=== PATIENT | male | born 1935 | race Caucasian/White ===

== ENCOUNTER 2016-05-16 15:12 | Observation (INO) | payer MEDICARE, OTHER ==
[~2016-05-16] VITALS: Ht 172.7 cm; Wt 95.5 kg
[2016-05-16 16:27] LABS: APPEARANCE CLEAR (CLEAR); COLOR TAN (YELLOW)
[2016-05-16 16:28] LABS: BILIRUBIN NEGATIVE (NEGATIVE); GLUCOSE NEGATIVE (NEGATIVE); KETONE NEGATIVE (NEGATIVE); LEUKOCYTE ESTERASE NEGATIVE (NEGATIVE); NITRITE NEGATIVE (NEGATIVE); PROTEIN NEGATIVE (NEGATIVE); UROBILINOGEN NORMAL (NORMAL)
[2016-05-16 16:34] LABS: APTT 20.3 SECONDS (22.8-39.4); INR 0.99 (0.85-1.17); PROTIME 12.9 SECONDS (11.6-15.0)
[2016-05-16 17:15] LABS: BASOPHILS 0.3 % (0.0-2.0); EOSINOPHILS 2.7 % (0-7); HEMATOCRIT 47.8 % (42.0-54.0); IMMATURE GRANULOCYTES 0.2 % (0-5); LYMPHOCYTES 39.7 % (15-50); MCH 34.2 pg (26.0-34.0); MCHC 33.5 g/dL (31.0-37.0); MCV 102.1 fL (80.0-100.0); MONOCYTES 9.3 % (2-11); NEUTROPHILS 47.8 % (40-80); PLATELET COUNT 145 10x3/uL (130-400); RBC 4.68 10x6/uL (4.20-6.10); RDW 13.8 % (11.5-14.5)
[2016-05-16 17:26] LABS: ALBUMIN 3.6 g/dL (3.4-5.0); ALKALINE PHOSPHATASE 92 U/L (46-116); ALT (SGPT) 43 U/L (10-68); BILIRUBIN - TOTAL 0.34 mg/dL (0.2-1.3); CALC OSMOLALITY 285 mosm/kg (275-300); CALCIUM 9.1 mg/dL (8.5-10.1); CARBON DIOXIDE 27.5 mmol/L (21.0-32.0); CHLORIDE - SERUM 108 mmol/L (98-107); GLUCOSE 93 mg/dL (74-106); POTASSIUM - SERUM 4.4 mmol/L (3.5-5.1); PROTEIN - SERUM 6.9 g/dL (6.4-8.2); SODIUM 144 mmol/L (136-145); UREA NITROGEN 10 mg/dL (7-18); eGFR NON AFRICAN AMERICAN 76 mL/min (90-120)
[2016-05-16 17:35] LABS: CREATINE KINASE 57 UL (21-232); MAGNESIUM - SERUM 1.9 mg/dL (1.8-2.4); PRO BNP 162 pg/mL (0-450)
[2016-05-16 17:38] LABS: TROPONIN-I < 0.017 ng/mL (0.000-0.060)
--- NOTE | 2016-05-16 19:00 | NUR ---
BEDSIDE REPORT RECEIVED AND CARE OF PT ASSUMED. PT LYING IN SEMI EARLY'S POSITION WITH EYES CLOSED. RIGHT CVL PATENT WITH D5 LR INFUSING AT 140 ML / HR. CORN SHELLER IN USE WITH MORPHINE SET AT 05/15/09 FOR PAIN MANAGEMENT. TELEMETRY IN USE AND READING 71 SR, SLIGHTLY IRREGULAR AT THIS ASSESSMENT. WOUND VAC ON RIGHT SIDE COMPRESSED WITHOUT LEAK ALARMS. SCD'S IN USE ON BLE. MARTIN CATHETER DRAINING TO GRAVITY WITH YELLOW URINE IN COLLECTION BAG. O2 IN USE AT 2L VIA NC AND SPO2 95% AT THIS TIME. WILL MONITOR SERGEYLEY FOR NEEDS.
--- NOTE | 2016-05-16 20:04 | NUR ---
PT ARRIVED ON UNIT VIA WHEELCHAIR ESCORTED BY ER NURSE AND SPOUSE. POSITIONED IN BED FOR COMFORT. IV IN LEFT WRIST SL. NEURO CHECKS PERFORMED WITH NO DEFICITS AT THIS ASSESSMENT.
[2016-05-16] MEDS ORDERED: NAMENDA10 MG PO (20:06)
[2016-05-16] MEDS ORDERED: MULTAQ400 MG PO (20:06)
[2016-05-16] MEDS ORDERED: ASPIRIN81 MG PO (20:07)
[2016-05-16 20:43] VITALS: BP 139/76; Ht 172.7 cm; Wt 95.5 kg
--- NOTE | 2016-05-16 20:45 | NUR ---
PROVIDED SNACK OF JUICE, PUDDING AND EVELIO CRACKERS.
--- NOTE | 2016-05-16 21:00 | NUR ---
ADMISSION ASSESSMENT AND HISTORY COMPLETE. ADVANCED DIRECTIVES AND POA SUPPLIED BY SPOUSE AND COPY PLACED IN CHART.
--- NOTE | 2016-05-16 21:47 | NUR ---
HS MEDICATIONS GIVEN...PO MEDS GIVEN WITH SIP OF WATER, AND TURNED OFF SUCTION TO NG TUBE FOR 30 MINUTES.
--- NOTE | 2016-05-16 22:00 | NUR ---
PT TURNED ONTO LEFT SIDE PROPPED WITH PILLOWS.
--- NOTE | 2016-05-16 22:21 | NUR ---
HS MEDICATIONS GIVEN. WILL CONTINUE TO MONITOR FOR NEEDS.
--- NOTE | 2016-05-16 23:47 | NUR ---
PT RESTING QUIETLY AT THIS TIME ON LEFT SIDE, WITH EYES CLOSED AND UNLABORED BREATHING. SCD'S IN USE ON BLE. WOUND VAC COMPRESSED WITH NO LEAK ALARMS.
[2016-05-17 04:24] VITALS: BP 110/66
--- NOTE | 2016-05-17 07:40 | NUR ---
PATIENT RECEIVED ALERT IN RIGHT LATERAL POSITION. RESPIRATIONS EVEN AND UNLABORED. AT BEDSIDE. SIDE RAILS UP X2. BED IN LOW POSITION. CALL LIGHT IN REACH.
[2016-05-17 08:22] VITALS: BP 130/66
--- NOTE | 2016-05-17 11:52 | NUR ---
Patient Name: EDDIE HERNANDEZ Admission Status: ER Accout number: [id number] Admission Date: 05-16-2016 : 1935 Admission Diagnosis: Attending: CHAI Current LOS: 1 Anticipated DC Date: 05-17-2016 Planned Disposition: Home with Home Health Primary Insurance: MEDICARE A & B Discharge Planning Comments: CM MET WITH PATIENT AND SPOUSE (JOE) REGARDING D/C NEEDS AND PLANS. PATIENTS STATED THEY LIVE IN A [place] L[place]EL [place]. PATIENT IS PARTIAL DEPENDENT AND USES A WALKER AT HOME. PATIENT ALSO HAS A CANE, BUILT IN SHOWER BENCH, PORTABLE O2, AND HOME O2 WHICH STATES HE DOES NOT USE REGULARLY. PATIENTS PCP IS DR. PARIKH AND PHARMACY IS [facility] ON [address]. PATIENTS CHOSE [facility] WITH THE COLLEEN FORM SIGNED AND REFERRAL WAS FAXED. CM WILL CONTINUE TO FOLLOW PATIENT WITH D/C NEEDS AND PLANS. PCP DR[facility] [address]- [phone] JOE () [phone] Pipe Fitter Ammonia: Wendi Luna Is the patient Alert and Oriented? No 0 * How many steps to enter\exit or inside your home? 0 0 * PCP DR. PARIKH 0 * Pharmacy [facility] [address] 0 * Preadmission Environment Home with Family 0 * ADLs Partial Dependent 0 * Partial ADLs (Assistance needed) Ambulation Bathing Dressing Medication Management Toileting Transfers 0 * Community resources currently utilized None 0 * Additional services required to return to the preadmission environment? Yes 0 * Can the patient safely return to the preadmission environment? Yes 0 * Has this patient been hospitalized within the prior 30 days at any hospital? No 0 Grand Total: 0
[2016-05-17 12:31] VITALS: BP 104/53
--- NOTE | 2016-05-17 12:57 | NUR ---
PATIENT SITTING UP ON SIDE OF BED EATING LUNCH. TOLERATING WELL. DENIES NEEDS. PRESENT.
--- NOTE | 2016-05-17 14:40 | NUR ---
IV D/C WITH CATH TIP INTACT. SITE COVERED WITH GAUZE AND BANDAID. D/C TEACHING PROVIDED TO PATIENT AND . STATES UNDERSTANDING.
--- NOTE | 2016-05-17 14:45 | NUR ---
PATIENT D/C HOME WITH . TRANSFERRED DOWNSTAIRS VIA WHEELCHAIR WITH STAFF.
== END 2016-05-17 14:46 | disposition home health service (06) ==
LOC: D.ER 15:12 → D.MS 19:18 → OBSVTIME 20:04 → D.MS 05-17 14:46
PROVIDERS: Emergency Medicine; Nurse Practitioner Family; ADMIT Legal Medicine
DX: G45.9 Transient cerebral ischemic attack, unspecified (principal); F03.90 Unspecified dementia, unspecified severity, without behavioral disturbance, psychotic disturbance, mood disturbance, and anxiety; G25.0 Essential tremor; I10 Essential (primary) hypertension; G47.00 Insomnia, unspecified; Z95.0 Presence of cardiac pacemaker; R29.810 Facial weakness; Z85.038 Personal history of other malignant neoplasm of large intestine

== ENCOUNTER 2016-06-09 16:46 | Inpatient (IN) | payer MEDICARE, OTHER ==
[~2016-06-09] VITALS: Ht 172.7 cm; Wt 137.0 kg
[~2016-06-09 16:46] MED LIST: ASPIRIN81 MG PO; MULTAQ400 MG PO; NAMENDA10 MG PO
[2016-06-09 17:59] LABS: BASOPHILS 0.2 % (0.0-2.0); EOSINOPHILS 0.2 % (0-7); HEMATOCRIT 47.3 % (42.0-54.0); HEMOGLOBIN 15.8 g/dL (13.5-17.5); IMMATURE GRANULOCYTES 0.3 % (0-5); LYMPHOCYTES 6.6 % (15-50); MCH 34.6 pg (26.0-34.0); MCHC 33.4 g/dL (31.0-37.0); MCV 103.7 fL (80.0-100.0); MEAN PLATELET VOLUME 9.7 fL (7.4-10.4); NEUTROPHILS 81.7 % (40-80); PLATELET COUNT 148 10x3/uL (130-400); RBC 4.56 10x6/uL (4.20-6.10); RDW 13.9 % (11.5-14.5); WBC 10.2 10x3/uL (4.8-10.8)
[2016-06-09 18:29] LABS: ALBUMIN 3.5 g/dL (3.4-5.0); ANION GAP 14.3 mmol/L (8-16); BILIRUBIN - TOTAL 0.7 mg/dL (0.2-1.3); CREATININE - SERUM 1.4 mg/dL (0.6-1.3); POTASSIUM - SERUM 4.3 mmol/L (3.5-5.1); PROTEIN - SERUM 7.1 g/dL (6.4-8.2)
[2016-06-09 18:45] LABS: APPEARANCE CLEAR (CLEAR); BILIRUBIN NEGATIVE (NEGATIVE); COLOR YELLOW (YELLOW); GLUCOSE NEGATIVE (NEGATIVE); KETONE NEGATIVE (NEGATIVE); LEUKOCYTE ESTERASE TRACE (NEGATIVE); NITRITE NEGATIVE (NEGATIVE); PROTEIN 1+ mg/dL (NEGATIVE); UROBILINOGEN NORMAL (NORMAL)
[2016-06-09 18:47] LABS: BACTERIA MODERATE /hpf (NONE SEEN); EPITHELIAL CELLS 0-5 /hpf (0-5); HYALINE CAST 0-5 /lpf (NONE SEEN); MUCUS <1+ /lpf (NONE SEEN); RED CELLS - URINE 0-5 /hpf (0-5); WHITE CELLS - URINE 0-5 /hpf (0-5)
[2016-06-09 21:58] VITALS: BP 103/54; BMI 46.0
--- NOTE | 2016-06-09 22:04 | NUR ---
PT ARRIVED FROM ER BY STRETCHER WITH SHAWNA OSBORNE AT SIDE NOT AT SIDE AND CALLED AND HEALTH HX AND MEDICATIONS REVIEWED AND CONFIRMED. PT APPERS TO BE CONFUSED AT TIMES AND POOR HISTORIAN, RESPERATIONS EVEN AND UNLABORED ON ROOM AIR PT WARM TO TOUCH AND TYLENOL ADMIN IN ER PER JAY RN IN ER NO DISTRESS WITH PT AT THIS TIME CALL LIGHT IN REACH SRX2 BED LOW AND LOCKED WILL MONITOR
[2016-06-10] VITALS (13 sets, daily range): BP systolic 100–141; BP diastolic 45–84
--- NOTE | 2016-06-10 07:24 | NUR ---
PATIENT RESTING IN BED WITH AT BEDSIDE. PATIENT IS AWAKE, ALERT, AND ORIENTED TO PERSON ONLY. PATIENT DID NOT KNOW THE MONTH AND YEAR. PATIENT ALSO STATED HE WAS AT [facility]". REORIENTED PATIENT TO TIME, PLACE, AND SITUATION. DENIES ANY PAIN AY PRESENT TIME. BED ALARM IN PLACE FOR FALL PRECAUTIONS. ASSESSMENT COMPLETED PER FLOWSHEET. IV PATENT WITHOUT ANY S/S OF INFECTION IN PATIENT'S LEFT HAND. NS INFUSING AT 50 ML/HR. CALL LIGHT IN PATIENT'S REACH. PATIENT DENIES NEEDS AT PRESENT TIME. WILL MONITOR PATIENT.
--- NOTE | 2016-06-10 23:54 | NUR ---
ASSISTED PATIENT TO STAND AND USE URINAL. NOW BACK IN BED. AWAKE AND ALERT BUT CONFUSED. RR EVEN AND UNLABORED. 0 S/S OF DISTRESS. DENIES PAIN AT THIS TIME. IV TO LEFT HAND PATENT WITH NO REDNESS OR SWELLING. B/A ON. SRX2. BED LOW. CALL LIGHT WITHIN REACH.
--- NOTE | 2016-06-11 00:04 | NUR ---
PATIENT WATCHING TV IN SEMI-FOWLERS POSITION. PATIENT DENIES NEEDS AT THIS TIME. PATIENT'S BED IN THE LOWEST POSITION AND CALL LIGHT WITHIN REACH.
[2016-06-11 04:00] VITALS: BP 132/89
--- NOTE | 2016-06-11 07:06 | NUR ---
RECIEVED PATIENT VIA WALKING ROUNDS. PATIENT AWAKE, ALERT AND CONFUSED. PATIETNT ARGUING WITH ABOUT WHEN HE IS LEAVING. CALMLY TRYING TO EXPLAIN TO PATIENT THAT HE IS NOT DISCHARGED. PAITENT SITTING UP IN THE CHAIR. APPLIED ALVAREZ MAT ALARM TO CHAIR, TURNED ON, CHECKED FUNCTIONING. ALVAREZ MAT ALARM FUNCTIONING PROPERLY. EXPLAINED TO PATIENT ABOUT THE ALARM. PATIENT AGITATED. PATIENT STATED "I AM NOT GOING TO GET UP I DO NOT NEED ALL OF THESE ALARMS" EXPLAINED TO PATIENT IT IS FOR SAFETY. PATIENT VERBALIZED UNDERSTANDING. POINTED OUT STICKY STUFF ON THE FLOOR. IT TRAILS ALL THE WAY UNDER THE BED. CLEANED IT UP OFF OF THE FLOOR OUTSIDE FROM UNDER THE BED. NOTIFIED EVS OF STICKY STUFF UNDER THE BED. CALL LIGHT IN REACH. DOOR OPEN. PATIENT DENIES NEEDS.
[2016-06-11 08:10] VITALS: BP 124/75
--- NOTE | 2016-06-11 10:19 | NUR ---
PATIENT OUT OF THE SHOWER. BACK IN BED. SCDS TO BILATERAL LEGS. BED IN LOWEST POSITION, CALL LIGHT IN REACH. NO SIGNS OF DISTRESS NOTED. PATIENT IS CONTENT. DENIES NEEDS. BED ALARM ON. DOOR OPEN.
[2016-06-11 11:02] VITALS: Ht 172.7 cm; Wt 137.0 kg
[2016-06-11 11:31] VITALS: BP 132/85
[2016-06-11 16:26] VITALS: BP 121/63
--- NOTE | 2016-06-11 19:00 | NUR ---
PATIENT IN BED WATCHING TV. AWAKE AND ALERT BUT DISORIENTED TO PLACE, TIME, AND SITUATION. DENIES PAIN AT THIS TIME. IV TO LEFT HAND PATENT WITH NO REDNESS OR SWELLING. SCD'S ON. ALVAREZ ALARM ON. SRX2. BED LOW. CALL LIGHT WITHIN REACH. DOOR OPEN.
[2016-06-11 21:00] VITALS: BP 164/93
[2016-06-12 01:00] VITALS: BP 160/90
[2016-06-12 05:00] VITALS: BP 131/78
[2016-06-12 08:00] LABS: BASOPHILS 0.5 % (0.0-2.0); EOSINOPHILS 2.1 % (0-7); HEMATOCRIT 40.9 % (42.0-54.0); IMMATURE GRANULOCYTES 0.2 % (0-5); LYMPHOCYTES 22.3 % (15-50); MCH 34.1 pg (26.0-34.0); MCHC 34.2 g/dL (31.0-37.0); MCV 99.8 fL (80.0-100.0); MEAN PLATELET VOLUME 9.7 fL (7.4-10.4); MONOCYTES 10.7 % (2-11); NEUTROPHILS 64.2 % (40-80); PLATELET COUNT 142 10x3/uL (130-400); RDW 13.5 % (11.5-14.5); WBC 6.6 10x3/uL (4.8-10.8)
[2016-06-12 08:18] VITALS: BP 146/86
[2016-06-12 08:18] LABS: ALBUMIN 2.9 g/dL (3.4-5.0); BILIRUBIN - TOTAL 0.6 mg/dL (0.2-1.3); CALCIUM 8.6 mg/dL (8.5-10.1); CARBON DIOXIDE 24.5 mmol/L (21.0-32.0); CREATININE - SERUM 1.1 mg/dL (0.6-1.3); POTASSIUM - SERUM 3.5 mmol/L (3.5-5.1); PROTEIN - SERUM 6.9 g/dL (6.4-8.2)
--- NOTE | 2016-06-12 08:30 | NUR ---
Patient Name: EDDIE HERNANDEZ Admission Status: ER Accout number: [id number] Admission Date: 06-09-2016 : 1935 Admission Diagnosis: Attending: CHAI Current LOS: 3 Anticipated DC Date: 06-14-2016 Planned Disposition: Home with Home Health Primary Insurance: MEDICARE A & B Discharge Planning Comments: CM MET WITH PATIENT AND (JOE) REGARDING D/C NEEDS AND PLANS. STATED SHE WILL DRIVE PATIENT HOME AT DISCHARGE. THERE ARE 4 STEPS WITH RAILS TO ENTER HOME AND NO STAIRS INSIDE. PATIENT IS INDEPENDENT WITH HIS CARE AND HAS A WALKER, CANE, OXYGEN, AND PORTABLE AT HOME IF NEEDED. PATIENTS PCP IS DR. PARIKH AND PHARMACY IS NOW [facility]. PATIENT IS CURRENT WITH [facility]. CM WILL CONTINUE TO FOLLOW PATIENT WITH D/C NEEDS AND PLANS. PCP DR[facility] JOE () [phone] Linen Room Custodian: Wendi Luna Is the patient Alert and Oriented? Yes 0 * How many steps to enter\exit or inside your home? 4/RAILS 0 * PCP DR. PARIKH 0 * [facility]acy [facility] * Preadmission Environment Home with Family 0 * ADLs Independent 0 * Equipment Cane Oxygen Rolling Walker 0 * List name and contact numbers for known caregivers / representatives who currently or will assist patient after discharge: JOE () [phone] 0 * Community resources currently utilized Home Health 0 * Please name any agencies selected above. [facility] 0 * Additional services required to return to the preadmission environment? Yes 0 * Can the patient safely return to the preadmission environment? Yes 0 * Has this patient been hospitalized within the prior 30 days at any hospital? No 0 Grand Total: 0
--- NOTE | 2016-06-12 09:23 | NUR ---
PATIENT SITTING UP IN THE CHAIR. NO SIGNS OF DISTRESS NOTED.
--- NOTE | 2016-06-12 11:01 | NUR ---
CM REASSESSMENT NOTE: PATIENT WILL DISCHARGE TODAY - (JOE) WILL DRIVE PATIENT HOME. PATIENT IS CURRENT WITH [facility] AND THEY WERE NOTIFIED OF HIS DISCHARGE TODAY. DC [facility] NOTICE SERVED TODAY.
--- NOTE | 2016-06-12 11:40 | NUR ---
DISCHARGE INSTRUCTIONS COMPLETED WITH PATIENT AND . BOTH VERBALIZED UNDERSTANDING AND DENY QUESTIONS. IV IS OUT OF HAND WITH CATH INTACT. PATIENT LEFT VIA WHEELCHAIR WITH VOLUNTEER STAFF AND .
== END 2016-06-12 12:08 | disposition home health service (06) | DRG 864 ==
LOC: D.ER 16:46 → D.MS 20:20
PROVIDERS: Physician Assistant Medical; ADMIT Legal Medicine
DX: R50.9 Fever, unspecified (principal); N28.9 Disorder of kidney and ureter, unspecified; Z95.0 Presence of cardiac pacemaker; W19.XXXA Unspecified fall, initial encounter; R25.1 Tremor, unspecified; Z95.1 Presence of aortocoronary bypass graft; Z95.5 Presence of coronary angioplasty implant and graft

== ENCOUNTER → 2016-09-06 09:28 | Outpatient (CLI) | payer MEDICARE, OTHER ==
[2016-06-11 11:02] VITALS: BMI 45.9
== END | disposition home or self-care (01) ==
LOC: D.CT 09:28
DX: I65.29 Occlusion and stenosis of unspecified carotid artery (principal)

== ENCOUNTER 2017-06-25 09:49 | Day surgery (SDC) | payer MEDICARE, OTHER ==
[~2017-06-25] VITALS: Ht 172.7 cm; Wt 86.2 kg
--- NOTE | ~2017-06-25 | OP ---
PATIENT NAME: EDDIE HERNANDEZ JR MEDICAL RECORD: [id number] :[birth year] LOCATION:D.OPS ADMISSION DATE: SURGEON: EVERARDO PERAZA MD DATE OF OPERATION: 06/25/2017 SURGEON: Everardo Peraza MD ANESTHESIA: General, Dr. Jean-Baptiste. OPERATION PERFORMED: 1. AICD pulse generator exchange. 2. Pulse generator pocket revision. PREOPERATIVE DIAGNOSIS: Pulse generator end of life. POSTOPERATIVE DIAGNOSES: Pulse generator end of life with contracted pulse generator pocket. INDICATION FOR OPERATION: Pulse generator end of life. FINDINGS OF THE OPERATION: The explanted pulse generator, Medtronic model #[id number], serial #[id number]. Newly implanted pulse generator, Medtronic model #IMTW8V1, serial #[id number]. The leads were good chronic leads. DESCRIPTION OF PROCEDURE: After informed consent, adequate preoperative medication evaluation, the patient was brought to the operating room, placed on the table in the supine position. After induction of general endotracheal anesthesia and application of appropriate monitoring devices, the left subclavian area was prepped and draped in a sterile field, utilizing Betadine scrub, alcohol, and Betadine solution. A Betadine-impregnated drape was also used. The left pulse generator pocket and incision were anesthetized with 1% lidocaine. An incision was made and dissection carried down to the pocket. The device was removed. The pocket was examined and had contraction with torsion of the device, therefore the pulse generator pocket was incised and developed more medially and inferiorly. Hemostasis was assured. The new device was connected to the leads and the device found to sense pace appropriately. The pocket was irrigated. Instrument count and sponge count were correct times 2. Pocket was closed in layers utilizing 3-0 Vicryl on the deep subcutaneous tissue and anterior pocket, 3-0 Vicryl on the subcutaneous tissue, and skin approximated with 5-0 subcuticular Monocryl. Sterile dressing was applied. The patient tolerated the procedure well and was transferred to postanesthesia recovery in satisfactory condition. TRANSINT:[id number] Voice Confirmation ID: [id number] DOCUMENT ID: [id number] OPERATIVE REPORT [id number] EDDIE HERNANDEZ EVERARDO KOENIG JR, MD at 1409 CC: [id number] DICTATION DATE: 06/25/17 1255 AUTOMOTIVE WORKER: 06/25/17 1322 [facility] 06/25/17 [place] [id number] [facility] [place], [facility]901
--- NOTE | ~2017-06-25 | HP ---
PATIENT: EDDIE HERNANDEZ JR MEDICAL RECORD: [id number] ACCOUNT: [id number] LOCATION:D.OPS : [birth year] ADMISSION DATE: 06/25/17 HISTORY AND PHYSICAL EXAMINATION NameSEDDIE MICHAEL (81yo, M) ID# [id number]. Date/Time06/12/2017 01:75YHYCX65 1935[facility] ClinicProviderEDROBYN PERAZA MDInsuranceMed Primary: [place] ([place]ARE) Insurance # : [id number] PCP : ZOË PARIKH Referring Provider Name : ZOË PARIKH Employer Name : [employer] Secondary: [employer] BENEFIT PLANS (MEDICARE SUPPLEMENT) Insurance # : [id number] Referring Provider Name : ZOË PARIKH Employer Name : [employer] Prescription: ESI1 - Member is eligible. Chief Complaint pulse generator end-of-life s/p CABG x 4 11/14/98 s/p gen exchange 08/07/2007 following carotid stenosis eval now for gen change Patient's Care Team Primary Care Provider (): ZOË PARIKH: [address] [place] [address] [place] [phone], , Referring Provider (): ZOË PARIKH: [address] [facility] [address] [facility], [place] [address], , Patient's Pharmacies [facility] [id number] (ERX): [address] [place] [address], , Vitals BP:120/86 sitting R arm 06/12/2017 01:34 pmBP Cuff Size:adult 06/12/2017 01:34 pmHR:72,reg 06/12/2017 01:34 pmHt:5 ft 7 in 06/12/2017 01:29 pmNotes:needs battery in ppm 06/12/2017 01:34 pmAllergies Reviewed Allergies MORPHINE: Itching (Mild to moderate)Medications Reviewed Medications azithromycin 500 mg rpzsac24/06/17 filledMEDCObenzonatate 100 mg iheynwh24/06/18 filledMEDCObenzonatate 200 mg cexickc70/28/18 hffmvxICQGUvqicebqrw31/08/17 enteredCindy BrownFluzone High-Dose [id number] (PF) 180 mcg/0.5 mL intramuscular syringe ADM 0.5ML IM UTD1 filledsurescriptslidocaine-prilocaine 2.5 %-2.5 % topical cream12/31/16 filledMEDCOmemantine 10 mg /22/18 filledMEDCOMultaq 400 mg edvlft55/22/18 filledMEDCOoseltamivir 75 mg rtncowm50/28/18 filledMEDCOProblems Reviewed Problems Pacemaker battery depletion - Onset: 06/12/2017 Cardiac pacemaker in situ - Onset: 06/12/2017 Carotid artery stenosis - Onset: 09/10/2016 Secondary polycythemia Family History Discussed Family History Non-contributory.Father- Heart diseaseMother- Natural deathSocial History HISTORY AND PHYSICAL [id number] EDDIE HERNANDEZ JR Discussed Social History Cardiology and General Family history of heart disease?: Y Smoking Status: Never smoker High Cholesterol: Y High blood pressure: Y Diabetes: N Alcohol intake: None Occupation: Retired Marital status: Is blood transfusion acceptable in an emergency?: Y Caffeine intake: None Surgical History Reviewed Surgical History Other - 2010 - Hip fracture Other - 2009 - Cardiac arrest Other - 2009 - Defibrillator Other - 2008 - TIA Other - 2007 - 2 stents Other - 1998 - CABG Past Medical History Discussed Past Medical History Cancer: Y - Colon Carotid Stenosis: Y Coronary Artery Disease: Y Heart Disease: Y High Blood Pressure: Y Documents for Discussion N/A Screening None recorded. HPI Dysrhythmia Reported by patient. Frequency: none Limitations: none Alleviating Factors: controlled on current medication Notes: AICD placed in 2009, now needs new battery AICD end-of-life ROS Patient reports muscle aches, muscle weakness, and arthralgias/joint pain but reports no back pain and no swelling in the extremities. He reports no loss of consciousness, no weakness, no numbness, no seizures, no dizziness, and no headaches; dementia. He reports no fever, no night sweats, no significant weight gain, no significant weight loss, and no exercise intolerance. He reports no dry eyes, no irritation, and no vision change. He reports no difficulty hearing and no ear pain. He reports no frequent n o sebleeds and no nose/sinus problems. He reports no sore throat, no bleeding gums, no snoring, no dry mouth, no mouth ulcers, no oral abnormalities, and no teeth problems. He reports no chest pain, no arm pain on exertion, no shortness of breath when walki n g, no shortness of breath when lying down, no palpitations, and no known heart murmur. He reports no cough, no wheezing, no shortness of breath, and no coughing up blood. He reports no abdominal pain, no vomiting, normal appetite, no diarrhea, not vomitin g blood, no nausea, and no constipation. He reports no incontinence, no difficulty urinating, no hematuria, and HISTORY AND PHYSICAL [id number] DAVID,EDDIE A JR no increased frequency. He reports no abnormal mole, no jaundice, and no rashes. He reports no depression, no sleep disturbances, feeling safe i n relationship, and no alcohol abuse. He reports no fatigue. He reports no swollen glands and no bruising. He reports no runny nose, no sinus pressure, no itching, no hives, and no frequent sneezing. ROS as noted in the HPI Physical Exam Patient is an 81-year-old male. Constitutional: General Appearance well nourished and developed and healthy-appearing. Level of Distress NAD. Ambulation ambulation with walker. Cardiovascular: Apical Impulse not displaced or no thrill. Heart Auscultation normal s1 and s2; no murmurs, rubs, or gallops; and RRR. Arterial Pulses no abdominal aorta bruits, femoral bruits, or popliteal bruits and 2+ bilateral, carotid 2+ bilateral, femoral 2+ bilateral, popliteal 2+ bilateral, and dorsalis p jerson 2+ bilateral. Edema no edema or varicosities. Lungs: Repiratory Effort no dyspnea. Percussion no hyperresonance or dullness or flatness. Auscultation no wheezing, rhonchi, or rales / crackles and breathing sounds normal, good air movement, and CTA except as noted. Abdomen: Bowl Sounds normal. Inspection and Palpation no tenderness, guarding, masses, or rebound tenderness and soft and non-distended. Liver non-tender and no hepatomegaly. Spleen non-tender and no splenomegaly. Hernia none palpable. Musculoskeletal System: Gait And Stance wide-based and irregular gait and stance. Digits and Nails normal nails and no cyanosis. Neurologic: Cranial Nerves grossly intact. Reflexes DTRs 2+ bilaterally throughout. Sensation grossly intact. Lymph Nodes: Lymph Nodes no cervical LAD, supraclavicular LAD, axillary LAD, or inguinal LAD. Eyes: Lids and Conjunctivae no discharge or pallor and non-injected. Pupils PERRLA. Cornea grossly intact. EOM EOMI. Lens clear. Sclerae non-icteric. Neck: Neck no masses or enlarged lymph nodes and supple, trachea midline, and carotid bruits (bilateral). Thyroid no enlargement or nodules and non-tender. Skin: Inspection and Palpation no rash, lesions, ulcers, jaundice, or abnormal nevi. Assessment / Plan automatic implantable cardio defibrillator end-of-life 1. Pacemaker battery depletion T82.111A: Breakdown (mechanical) of cardiac pulse generator (battery), initial encounter 2. Cardiac pacemaker in situ Z95.0: Presence of cardiac pacemaker Discussion Notes I have discussed patient's disease process with them and his caregiver in detail as well as the alternative methods of treatment. We discussed AICD generator exchange HISTORY AND PHYSICAL [id number] EDDIE HERNANDEZ JR including the expected benefits and risks which include bleeding, infection, stroke, and , and the imponderables. They understand all of the above and he wishes to proceed with planned procedure Call and schedule AICD GENERATOR EXCHANGE EVERARDO PERAZA MD at 1409 CC: [id number] DICTATION DATE: 06/12/17 1330 FIELD RETURN REPAIRER: DM 06/24/17 0959 [facility] 06/25/17 [facility] [address] [place] [address]
[2017-06-25 10:22] VITALS: BP 129/79; Ht 172.7 cm; Wt 86.2 kg
[2017-06-25 10:39] LABS: HEMATOCRIT 46.7 % (42.0-54.0); HEMOGLOBIN 16.2 g/dL (13.5-17.5); MCH 33.4 pg (26.0-34.0); MCHC 34.7 g/dL (31.0-37.0); MCV 96.3 fL (80.0-100.0); MEAN PLATELET VOLUME 10.6 fL (7.4-10.4); RBC 4.85 10x6/uL (4.20-6.10); RDW 14.6 % (11.5-14.5); WBC 5.5 10x3/uL (4.8-10.8)
[2017-06-25 10:48] LABS: ANION GAP 13.6 mmol/L (8-16); CALCIUM 8.8 mg/dL (8.5-10.1); CARBON DIOXIDE 26.1 mmol/L (21.0-32.0); CREATININE - SERUM 1.4 mg/dL (0.6-1.3); POTASSIUM - SERUM 3.7 mmol/L (3.5-5.1)
[2017-06-25 10:49] LABS: APTT 23.8 SECONDS (22.8-39.4); INR 1.08 (0.85-1.17); PROTIME 13.6 SECONDS (11.6-15.0)
== END 2017-06-25 15:30 | disposition home or self-care (01) ==
LOC: D.OPS 09:49
PROVIDERS: Internal Medicine Cardiovascular Disease
DX: Z45.02 Encounter for adjustment and management of automatic implantable cardiac defibrillator (principal); I42.9 Cardiomyopathy, unspecified; Z01.812 Encounter for preprocedural laboratory examination

== ENCOUNTER 2019-02-15 13:09 | Emergency (ER) | payer MEDICARE, OTHER ==
[~2019-02-15] VITALS: Ht 172.7 cm; Wt 63.6 kg
[2019-02-15 13:13] VITALS: Ht 172.7 cm; Wt 63.6 kg
[2019-02-15 13:44] LABS: BASOPHILS 0.2 % (0-2); EOSINOPHILS 1.3 % (0-7); HEMATOCRIT 44.1 % (42.0-54.0); HEMOGLOBIN 14.5 g/dL (13.5-17.5); IMMATURE GRANULOCYTES 0.1 % (0-5); MCHC 32.9 g/dL (31.0-37.0); MCV 103.5 fL (80.0-100.0); MEAN PLATELET VOLUME 9.8 fL (7.4-10.4); MONOCYTES 6.4 % (2-11); RBC 4.26 10x6/uL (4.20-6.10)
[2019-02-15 13:49] LABS: PLATELET COUNT 163 10x3/uL (130-400)
[2019-02-15 14:06] LABS: ALBUMIN 2.8 g/dL (3.4-5.0); ANION GAP 12.3 mmol/L (8-16); BILIRUBIN - TOTAL 0.44 mg/dL (0.2-1.3); CALCIUM 9.3 mg/dL (8.5-10.1); CARBON DIOXIDE 29.6 mmol/L (21.0-32.0); CREATININE - SERUM 1.2 mg/dL (0.6-1.3); POTASSIUM - SERUM 3.9 mmol/L (3.5-5.1); PROTEIN - SERUM 6.8 g/dL (6.4-8.2)
[2019-02-15] MEDS ORDERED: ZPAK PO (16:54)
[2019-02-15 17:50] VITALS: BP 110/64
== END 2019-02-15 17:57 | disposition home or self-care (01) ==
LOC: D.ER 13:09
PROVIDERS: Emergency Medicine
DX: J06.9 Acute upper respiratory infection, unspecified (principal); E86.0 Dehydration; Z86.73 Personal history of transient ischemic attack (TIA), and cerebral infarction without residual deficits; Z95.0 Presence of cardiac pacemaker; F03.90 Unspecified dementia, unspecified severity, without behavioral disturbance, psychotic disturbance, mood disturbance, and anxiety

== ENCOUNTER 2019-04-21 22:13 | Inpatient (IN) | payer MEDICARE, OTHER ==
[~2019-04-21] VITALS: Ht 172.7 cm; Wt 71.1 kg
[~2019-04-21 22:13] MED LIST changes: +ZPAK PO
[2019-04-21 22:58] LABS: APTT 28.2 SECONDS (22.8-39.4); BASOPHILS 0.3 % (0-2); EOSINOPHILS 0 % (0-7); HEMATOCRIT 43.4 % (42.0-54.0); HEMOGLOBIN 14.5 g/dL (13.5-17.5); IMMATURE GRANULOCYTES 0.3 % (0-5); INR 1.11 (0.85-1.17); MCHC 33.4 g/dL (31.0-37.0); MCV 101.9 fL (80.0-100.0); MEAN PLATELET VOLUME 10.5 fL (7.4-10.4); MONOCYTES 1.3 % (2-11); NEUTROPHILS 89.1 % (40-80); PLATELET COUNT 89 10x3/uL (130-400); PROTIME 13.7 SECONDS (11.6-15.0); RBC 4.26 10x6/uL (4.20-6.10); RDW 14.9 % (11.5-14.5); WBC 3.8 10x3/uL (4.8-10.8)
[2019-04-21 23:00] VITALS: BP 92/47
[2019-04-21 23:02] LABS: PLATELET ESTIMATE DECREASED
[2019-04-21 23:05] LABS: CALC OSMOLALITY 284 mosm/kg (275-300); CALCIUM 8.2 mg/dL (8.5-10.1); CARBON DIOXIDE 27.1 mmol/L (21.0-32.0); CHLORIDE - SERUM 105 mmol/L (98-107); CREATININE - SERUM 1.6 mg/dL (0.6-1.3); GLUCOSE 74 mg/dL (74-106); POTASSIUM - SERUM 4.1 mmol/L (3.5-5.1); SODIUM 140 mmol/L (136-145); UREA NITROGEN 31 mg/dL (7-18); eGFR NON AFRICAN AMERICAN 44 mL/min (90-120)
[2019-04-21 23:25] LABS: ALBUMIN 2.7 g/dL (3.4-5.0); ALKALINE PHOSPHATASE 90 U/L (46-116); ALT (SGPT) 35 U/L (10-68); BILIRUBIN - TOTAL 0.49 mg/dL (0.2-1.3); CKMB 1.1 U/L (0.0-3.6); CREATINE KINASE 599 UL (21-232); PROTEIN - SERUM 6.8 g/dL (6.4-8.2)
[2019-04-21 23:26] LABS: TROPONIN-I < 0.017 ng/mL (0.000-0.060)
[2019-04-21 23:27] LABS: APPEARANCE CLOUDY (CLEAR); BILIRUBIN NEGATIVE (NEGATIVE); COLOR YELLOW (YELLOW); GLUCOSE 100 mg/dL (NEGATIVE); KETONE NEGATIVE (NEGATIVE); NITRITE NEGATIVE (NEGATIVE); PROTEIN 1+ mg/dL (NEGATIVE); UROBILINOGEN NORMAL (NORMAL)
[2019-04-21 23:28] LABS: BACTERIA MODERATE /hpf (NEGATIVE); EPITHELIAL CELLS 0-5 /hpf (0-5); RED CELLS - URINE 0-5 /hpf (0-5); WHITE CELLS - URINE 0-5 /hpf (NEGATIVE)
[2019-04-21 23:30] VITALS: BP 74/23
[2019-04-21 23:35] VITALS: BP 58/34
[2019-04-21 23:50] VITALS: BP 74/27
[2019-04-22] VITALS (61 sets, daily range): BP systolic 69–150; BP diastolic 24–81; Ht 172.7 cm; Wt 71.1 kg
--- NOTE | 2019-04-22 01:18 | NUR ---
PT RECIEVED FROM ED VIA STRETCHER ACCOMPANIED BY RN. AWAKE, LETHARGIC. TRANSFERED TO ICU BED RM 2306. MONITOR EQUIP ESTABLISHED. BP 122/63 WITH LEVOPHED @ 12 MCG/MIN. MARTIN CATH INSERTED PER STERILE TECHNIQUE. TOLERATED WELL. PIV X 3 PATENT. SR PER CM. PPM NOTED BUT NO PACED BEATS AT THIS TIME. WILL CONTINUE TO MONITOR.
[2019-04-22 03:03] LABS: BASOPHILS 0.1 % (0-2); EOSINOPHILS 0 % (0-7); HEMOGLOBIN 13.4 g/dL (13.5-17.5); IMMATURE GRANULOCYTES 0.2 % (0-5); LYMPHOCYTES 8.1 % (15-50); MCH 33.8 pg (26.0-34.0); MCHC 33.5 g/dL (31.0-37.0); MCV 100.8 fL (80.0-100.0); MEAN PLATELET VOLUME 10.1 fL (7.4-10.4); MONOCYTES 6.3 % (2-11); NEUTROPHILS 85.3 % (40-80); PLATELET COUNT 74 10x3/uL (130-400); RBC 3.97 10x6/uL (4.20-6.10); RDW 14.7 % (11.5-14.5); WBC 9.4 10x3/uL (4.8-10.8)
[2019-04-22 03:18] LABS: ALBUMIN 2.2 g/dL (3.4-5.0); ANION GAP 13.7 mmol/L (8-16); BILIRUBIN - TOTAL 0.56 mg/dL (0.2-1.3); CALCIUM 7.8 mg/dL (8.5-10.1); CARBON DIOXIDE 23.6 mmol/L (21.0-32.0); CREATININE - SERUM 1.7 mg/dL (0.6-1.3); PROTEIN - SERUM 5.7 g/dL (6.4-8.2)
[2019-04-22 03:19] LABS: POTASSIUM - SERUM 3.3 mmol/L (3.5-5.1)
--- NOTE | 2019-04-22 07:15 | NUR ---
REPORT RECEIVED. ASSESSMENT COMPLETE PER FLOW SHEET. VSS. NO NEW CAHNGES PT RESTING COMFORTABLY WILL CONTINUE TO MONITOR
[2019-04-22] MEDS ORDERED: CYMBALTA20 MG PO (09:06)
--- NOTE | 2019-04-22 09:15 | NUR ---
FAMILY AT BEDSIDE GIVEN UDPATE.
--- NOTE | 2019-04-22 11:15 | NUR ---
REASSESSMENT COMPLETE PER FLOW SHEET. VSS. NO NEW CHANGES PT RESTING COMFORTABLY WILL CNTINUE TO MONITOR
--- NOTE | 2019-04-22 13:15 | NUR ---
ASSISTED OOB TO CHAIR WITHOUT DIFFICULTY. VSS WILL CONTINUE TO MONITOR
--- NOTE | 2019-04-22 15:15 | NUR ---
REPORT RECEIVED. ASSESSMENT COMPLETE PER FLOW SHEET. VSS. NO NEW CHANGES PT ERSTING COMFORTABLY WILL CONTINUE TO MONITOR
--- NOTE | 2019-04-22 15:23 | MORECARE ---
CASE MANAGEMENT DISCHARGE SUMMARY PATIENT: EDDIE HERNANDEZ JR UNIT: [id number] ADM DATE: 04/21/19 AGE: 83 : 36 SEX: M ROOM/BED: D.2306 AUTHOR: MAURO ANAND PHYSICIAN: REFERRING PHYSICIAN: ZOË PARIKH MD DATE OF SERVICE: 04/22/19 Discharge Plan Patient Name: EDDIE HERNANDEZ Facility: [facility]:[place] : 1935 Planned Disposition: Anticipated Discharge Date: Discharge Date: Expected LOS: Initial Reviewer: [email or web address] Initial Review Date: 04/22/2019 Generated: 04/22/19 4:23 pm Patient Name: EDDIE HERNANDEZ Page [id number] at 1523 All edits/amendments must be made on the electronic document DICTATION DATE: 04/22/19 152 KIDS ACTIVITIES COACH: GUERITA 04/22/191522 RPT#: [id number] DC DATE: STATUS: ADM IN [facility] [address] [place] [address] END OF REPORT
--- NOTE | 2019-04-22 15:43 | MORECARE ---
CASE MANAGEMENT DISCHARGE SUMMARY PATIENT: EDDIE HERNANDEZ JR UNIT: [id number] ADM DATE: 04/21/19 AGE: 83 : 36 SEX: M ROOM/BED: D.2306 AUTHOR: CHENG,DOC PHYSICIAN: REFERRING PHYSICIAN: ZOË PARIKH MD DATE OF SERVICE: 04/22/19 Discharge Plan Patient Name: EDDIE HERNANDEZ Facility: [facility]:[place] : 1935 Planned Disposition: Anticipated Discharge Date: Discharge Date: Expected LOS: Initial Reviewer: [email or web address] Initial Review Date: 04/22/2019 Generated: 04/22/19 4:43 pm Comments DCP- Discharge Planning Updated by [email or web address]: Madyson Grimaldo on 04/22/19 2:[address] Patient Name: EDDIE HERNANDEZ Admission Status: ER Accout number: [id number] Admission Date: 04-21-2019 : 1935 Admission Diagnosis: Attending: ZOË PARIKH Current LOS: 1 Anticipated DC Date: Planned Disposition: Primary Insurance: MEDICARE A & B Discharge Planning Comments: CM met with patient at bedside after explaining CM role and obtaining verbal consent. Patient is confused and unable to answer questions appropriately. CM called and spoke with patient's Joe ([phone]) Patient lives at a custodial home where he get 24 hr care. (lived there for past 2 yrs.) and plans to return there upon discharge. Patient feels this would be a safe discharge. CM discussed availability / needs of home health and medical equipment. Patient denies any discharge needs at this time. Patient states he will have his family drive him home upon discharge. CM will continue to follow and assist as needed with discharge planning / needs. Geography Instructor: Madyson Grimaldo DCPIA - Discharge Planning Initial Assessment Updated by [email or web address]: Madyson Grimaldo on 04/22/19 3:32 pm * Is the patient Alert and Oriented? No * How many steps to enter\exit or inside your home? * PCP KATI * [facility]acy [facility] * Preadmission Environment Skilled Nursing * Facility Name [facility] * ADLs Partial Dependent * Partial ADLs (Assistance needed) Ambulation Bathing Dressing Eating Medication Management Toileting Transfers * Equipment Walker * List name and contact numbers for known caregivers / representatives who currently or will assist patient after discharge: JOE HERNANDEZ - SPOUSE - [phone] EDDIE HERNANDEZ III - SON- [phone] * Verbal permission to speak to the caregivers and representatives has been obtained from the patient. Yes * Community resources currently utilized None * Additional services required to return to the preadmission environment? No * Can the patient safely return to the preadmission environment? Yes * Has this patient been hospitalized within the prior 30 days at any hospital? No Last DP export: 04/22/19 2:23 Patient Name: EDDIE HERNANDEZ Page 27611 at 1543 All edits/amendments must be made on the electronic document DICTATION DATE: 04/22/191542 BOAT AND PLANT UTILITY SUPERVISOR: GUERITA 04/22/191542 RPT#: [id number] DC DATE: STATUS: ADM IN [facility] [address] [place] [address] END OF REPORT
--- NOTE | 2019-04-22 17:15 | NUR ---
PT GIVEN DINNER TRAY ATE 100% NO NEW CHANGE WILL CONTINUE TO MONITOR
--- NOTE | 2019-04-22 19:30 | NUR ---
REPORT RECIEVED, SHIFT ASSESSMENT COMPLETE, PT IS CONFUSED LYING IN BED, ALL PPP, VSS, CALL LIGHT IN REACH
--- NOTE | 2019-04-22 21:00 | NUR ---
NO VISITORS AT THIS TIME, WILL CON'T TO MONITOR
--- NOTE | 2019-04-22 23:00 | NUR ---
REASSESSMENT COMPLETE, NO CHANGES NOTED,
[2019-04-23] VITALS (15 sets, daily range): BP systolic 90–130; BP diastolic 40–76
--- NOTE | 2019-04-23 01:15 | NUR ---
CHG BATH GIVEN, PT UPTO CHAIR AT THIS TIME, WILL CON'T TO MONITOR
--- NOTE | 2019-04-23 03:30 | NUR ---
PT BACK TO BED AT THIS TIME, TOLERATED WELL
--- NOTE | 2019-04-23 05:18 | NUR ---
PT RESTING COMFORTABLY AT THIS TIME, VSS, CALL LIGHT IN REACH
[2019-04-23 05:21] LABS: BASOPHILS 0.1 % (0-2); EOSINOPHILS 0.5 % (0-7); HEMATOCRIT 39.5 % (42.0-54.0); HEMOGLOBIN 13.1 g/dL (13.5-17.5); IMMATURE GRANULOCYTES 0.3 % (0-5); LYMPHOCYTES 14.4 % (15-50); MCH 33.7 pg (26.0-34.0); MCHC 33.2 g/dL (31.0-37.0); MCV 101.5 fL (80.0-100.0); MEAN PLATELET VOLUME 11.9 fL (7.4-10.4); NEUTROPHILS 76.7 % (40-80); PLATELET COUNT 84 10x3/uL (130-400); RBC 3.89 10x6/uL (4.20-6.10); RDW 14.9 % (11.5-14.5); WBC 9.2 10x3/uL (4.8-10.8)
[2019-04-23 05:47] LABS: ANION GAP 9.5 mmol/L (8-16); CARBON DIOXIDE 28.1 mmol/L (21.0-32.0); POTASSIUM - SERUM 3.6 mmol/L (3.5-5.1); VANCOMYCIN - RANDOM 13.4 ug/mL (10.0-20.0)
[2019-04-23 05:48] LABS: CREATININE - SERUM 1.1 mg/dL (0.6-1.3)
--- NOTE | 2019-04-23 07:15 | NUR ---
REPORT RECEIVED. ASSESSMENT COMPLETE PER FLOW SHEET. VSS. NO NEW CHANGES PT RESTING COMFORTABLY WILL CONTINUE FLAQUITA ONITOR
[2019-04-23 09:08] LABS: PLATELET ESTIMATE DECREASED
--- NOTE | 2019-04-23 12:32 | NUR ---
RECEIVED TO ROOM 2217 VIA WC FROM ICU. A/O X3. SKIN WNL. UP IN CHAIR AT BEDSIDE EATING LUNCH.
--- NOTE | 2019-04-23 18:20 | NUR ---
CONTINUES UP IN CHIAR AT BEDSIDE EATING SUPPER. WAS HERE TO VISIT. DENIES NEEDS. NO CHANGES NOTED.
--- NOTE | 2019-04-23 19:53 | NUR ---
UP IN RECLINER. PLEASANTLY CONFUSED. ORIENTED TO PERSON ONLY. SAYS HE WANTS TO GO TO [place] AND GET SOME MORE COUPLINGS TO FINISH THE JOB. AGREED TO JUST STAY HERE INSTEAD SINCE [place] WAS CLOSING SOON. WILL NOTE ANY CHANGE.
--- NOTE | 2019-04-23 23:31 | NUR ---
STILL UP IN RECLINER, NOT COMPLIANT WITH GOING TO BED AT THIS TIME. SAYS HE IS WAITING ON A FRIEND TO COME, THIS NURSE ATTEMPTED TO REORIENTATE ON PLACE AND TIME, HE SAID HE WAS FINE WAITING. CHAIR ALARM IS STILL ENGAGED. WILL NOTE ANY CHANGE.
[2019-04-24] VITALS: BP 132/67
--- NOTE | 2019-04-24 02:34 | NUR ---
I have reviewed this patient and I concur with the Shift Assessment completed by the Licensed Practical Nurse today this shift.
[2019-04-24 04:00] VITALS: BP 115/53
[2019-04-24 06:40] LABS: ANION GAP 8.9 mmol/L (8-16); CALCIUM 8.4 mg/dL (8.5-10.1); CARBON DIOXIDE 27.4 mmol/L (21.0-32.0); CREATININE - SERUM 1.1 mg/dL (0.6-1.3); POTASSIUM - SERUM 3.3 mmol/L (3.5-5.1)
[2019-04-24 07:23] LABS: BASOPHILS 0.1 % (0-2); EOSINOPHILS 0.6 % (0-7); HEMATOCRIT 35.6 % (42.0-54.0); IMMATURE GRANULOCYTES 0.3 % (0-5); MCH 33.5 pg (26.0-34.0); MCHC 33.7 g/dL (31.0-37.0); MCV 99.4 fL (80.0-100.0); MEAN PLATELET VOLUME 11.6 fL (7.4-10.4); MONOCYTES 10.6 % (2-11); NEUTROPHILS 72.4 % (40-80); PLATELET COUNT 72 10x3/uL (130-400); RBC 3.58 10x6/uL (4.20-6.10); RDW 14.6 % (11.5-14.5)
--- NOTE | 2019-04-24 09:00 | NUR ---
PT ALERT AND ORIENDTED TO SELF WITH HX OF DEMENTIA. PRESENT AT BEDSIDE AT THIS TIME. RESIDENT STARTED ISOLATION DUE TO MRSA URINE WITH MARTIN CATH PATENT WITH CLEAR GABRIEL URINE NOTED. IVF INFUSING AT PRESCRIBED RATE WITH NO S/S OF INFECTION/INFILTRATION. FALL PRECAUTION IN PLACE AND ENCOURAGED TO USE CALL LIGHT FOR ASSIT.
[2019-04-24 09:45] VITALS: BP 128/59
[2019-04-24 13:25] VITALS: BP 130/64
[2019-04-24 17:02] VITALS: BP 108/42
[2019-04-24 20:00] VITALS: BP 105/49
[2019-04-25 04:00] VITALS: BP 109/53
[2019-04-25 06:40] LABS: BASOPHILS 0.2 % (0-2); EOSINOPHILS 2.5 % (0-7); HEMATOCRIT 36.6 % (42.0-54.0); IMMATURE GRANULOCYTES 0.4 % (0-5); LYMPHOCYTES 17.3 % (15-50); MCH 33.1 pg (26.0-34.0); MCHC 32.8 g/dL (31.0-37.0); MCV 100.8 fL (80.0-100.0); MEAN PLATELET VOLUME 10.9 fL (7.4-10.4); MONOCYTES 9.7 % (2-11); NEUTROPHILS 69.9 % (40-80); PLATELET COUNT 118 10x3/uL (130-400); RBC 3.63 10x6/uL (4.20-6.10); RDW 14.7 % (11.5-14.5); WBC 10.2 10x3/uL (4.8-10.8)
[2019-04-25 06:52] LABS: ANION GAP 11.1 mmol/L (8-16); CALCIUM 8.1 mg/dL (8.5-10.1); CARBON DIOXIDE 28.3 mmol/L (21.0-32.0); CREATININE - SERUM 1.2 mg/dL (0.6-1.3); POTASSIUM - SERUM 3.4 mmol/L (3.5-5.1)
[2019-04-25 08:35] VITALS: BP 116/67
--- NOTE | 2019-04-25 09:00 | NUR ---
ALERT AND ORIENTED TO SELF ONLY DUE TO CONFUSION RELATED TO UTI AND DEMENTIA. FALL PRECAUTIONS IN PLACE. PRESENT AT THIS TIME WITH PATINET. DENIES ANY PAIN OR DISCOMFORT AT THIS TIME. IV TO RT. HAND WITH IVF INFUSING AT PRESCRIBED RATE. TELEMETRY INTACT. ENCOURAGED TO USE CQLL LIGHT FOR ASSIST. ABDOMEN SOFT WITH BS NOTED AND LUNGS CTA
[2019-04-25 13:03] VITALS: BP 120/70
[2019-04-25 16:37] VITALS: BP 110/68
[2019-04-25 20:00] VITALS: BP 113/59
--- NOTE | 2019-04-25 22:00 | NUR ---
RIGHT ARM EDEMATOUS. IV PATENT. TURNED PT ON LEFT SIDE AND ELEVATED RIGHT ARM ON PILLOWS. WILL REASSESS AND CONTINUE TO MONITOR.
[2019-04-26] VITALS: BP 135/83
[2019-04-26 04:00] VITALS: BP 152/72
[2019-04-26 06:03] LABS: BASOPHILS 0.2 % (0-2); EOSINOPHILS 3.6 % (0-7); HEMATOCRIT 34.5 % (42.0-54.0); HEMOGLOBIN 11.3 g/dL (13.5-17.5); IMMATURE GRANULOCYTES 0.8 % (0-5); LYMPHOCYTES 19.2 % (15-50); MCH 32.9 pg (26.0-34.0); MCHC 32.8 g/dL (31.0-37.0); MCV 100.6 fL (80.0-100.0); MEAN PLATELET VOLUME 11.1 fL (7.4-10.4); NEUTROPHILS 64.2 % (40-80); RBC 3.43 10x6/uL (4.20-6.10); RDW 14.8 % (11.5-14.5); WBC 9.9 10x3/uL (4.8-10.8)
[2019-04-26 06:24] LABS: PLATELET COUNT 146 10x3/uL (130-400)
[2019-04-26 06:27] LABS: CALC OSMOLALITY 286 mosm/kg (275-300); CALCIUM 7.7 mg/dL (8.5-10.1); CARBON DIOXIDE 27.2 mmol/L (21.0-32.0); CHLORIDE - SERUM 110 mmol/L (98-107); GLUCOSE 88 mg/dL (74-106); POTASSIUM - SERUM 3.6 mmol/L (3.5-5.1); SODIUM 144 mmol/L (136-145); UREA NITROGEN 16 mg/dL (7-18); VANCOMYCIN - TROUGH 16.3 ug/mL (10.0-20.0); eGFR NON AFRICAN AMERICAN 76 mL/min (90-120)
[2019-04-26 08:11] VITALS: BP 124/60
--- NOTE | 2019-04-26 09:00 | NUR ---
ALERT AND ORIENTED TO PERSON ONLY DUE TO DEMENTIA WITH PRESENT. PT. IS INCONTINENT TO BOWEL WITH PERICARE DONE AND REPOSITIONED FOR COMFORT. MARTIN CATHETER INTACT WITH CLEAR GABRIEL URINE. LUNGS CTA AND HRRR. IVF INFUSING TO RT. HAND AT PRESCRIBED RATE. ENCOURAGED TO USE CALL LIGHT FOR ASSIST. CONTINUED ISOLATION
[2019-04-26 12:37] VITALS: BP 120/67
[2019-04-26 16:33] VITALS: BP 136/67
[2019-04-26 20:35] VITALS: BP 94/40
[2019-04-27 01:20] VITALS: BP 121/43
--- NOTE | 2019-04-27 03:18 | NUR ---
MINIMAL OUTPUT IN MARTIN. PT HAD LOOSE BM. MARTIN CATHETER MAY HAVE LEAKED. INSERTED 4 MORE MLS INTO BULB OF MARTIN. ANIMAL RIDES MANAGER CLEANED PT, CHANGED LINEN AND TURNED. GENERALIZED EDEMA ARMS, LEGS, TRUNK AND GENITALS. LEFT HEEL REDNESS. APPLIED HEEL PROTECTORS. NO OTHER NEEDS. WILL CONTINUE TO MONITOR.
[2019-04-27 05:21] VITALS: BP 110/43
[2019-04-27 08:25] VITALS: BP 129/67
[2019-04-27 08:40] LABS: CALC OSMOLALITY 284 mosm/kg (275-300); CALCIUM 7.9 mg/dL (8.5-10.1); CARBON DIOXIDE 25.9 mmol/L (21.0-32.0); CHLORIDE - SERUM 110 mmol/L (98-107); CREATININE - SERUM 0.9 mg/dL (0.6-1.3); GLUCOSE 79 mg/dL (74-106); POTASSIUM - SERUM 3.8 mmol/L (3.5-5.1); SODIUM 143 mmol/L (136-145); UREA NITROGEN 14 mg/dL (7-18); eGFR NON AFRICAN AMERICAN 86 mL/min (90-120)
--- NOTE | 2019-04-27 08:45 | NUR ---
PATIENT IN BED WITH IV INTACT. NOC OMPLAINTS OR SIGNS OF DISTRESS. DOES COMPLAINED WHEN MOVED OR REPOSITIONED. STATES HE HURTS WHEN MOVED. PATIENT HAS SWELLING TO ARMS AND PAULA AREA. ELEVATED ARMS ON PILLOWS. NO SKIN BREAKDOWN NOTED. DOES HAVE SOME ABRASIONS NOTED IN ANAL AREA. BOUDREUXS APPLIED. CALL LIGHT WITHIN REACH.
[2019-04-27 08:48] LABS: BASOPHILS 0.3 % (0-2); EOSINOPHILS 5.7 % (0-7); HEMATOCRIT 34.4 % (42.0-54.0); HEMOGLOBIN 11.4 g/dL (13.5-17.5); LYMPHOCYTES 15.3 % (15-50); MCH 33.5 pg (26.0-34.0); MCHC 33.1 g/dL (31.0-37.0); MCV 101.2 fL (80.0-100.0); MEAN PLATELET VOLUME 10.7 fL (7.4-10.4); MONOCYTES 12.7 % (2-11); RDW 15.2 % (11.5-14.5); WBC 10.1 10x3/uL (4.8-10.8)
[2019-04-27 08:52] LABS: PLATELET COUNT 177 10x3/uL (130-400)
--- NOTE | 2019-04-27 11:15 | NUR ---
PATIENT ASSISTED TO CHAIR AT THIS TIME BY COMBAT SYSTEMS OFFICER AND RN. MARTIN AND IV INTACT. NO COMPLAINTS OR SIGNS OF DISTRESS. PATIENT WEEK BUT ABLE TO STAND TO PIVOT TO CHAIR. STATED COMFORTABLE IN CHAIR. ALVAREZ ON. FAMILY AT BEDSIDE. CALL LIGHT WITHIN REACH.
--- NOTE | 2019-04-27 13:04 | NUR ---
Nutrition follow-up: Diet: Low sodium PO intake ~50% of meals Labs reviewed Wt: 157# +BM Will continue to provide food choices and honor food preferences. Will encourage increased po intake and offer nutritional supplements. RDN following.
[2019-04-27 14:20] VITALS: BP 125/74
--- NOTE | 2019-04-27 16:25 | NUR ---
PATIENT ASSISTED BY TO BED BY PLANT ETIOLOGIST AND RN AT THIS TIME. IV INTACT. DOESNT WANT TO WEAR O2. WILL MONITOR SATS. MARTIN INTACT. CALL LIGHT WITHIN REACH.
[2019-04-27 17:23] VITALS: BP 102/54
--- NOTE | 2019-04-27 18:45 | NUR ---
PATIENT IN BED WITH IV INTACT. NO COMPLAINTS, EYES CLOSED. IV INTACT. CALL LIGHT WITHIN REACH.
[2019-04-27 20:37] VITALS: BP 110/57
--- NOTE | 2019-04-27 22:57 | NUR ---
RESTING IN BED. RR EVEN AND NON LABORED. IV TO THE RT HAND WITH NO REDNESS NOTED. MARTIN IN PLACE AND NC @1L. SWELLING NOTED TO THE GEOVANNA ARMS. GENITAL IS RED AND SWOLLEN. PASTE APPLIED TO AREA. A/O WHEN AROUSED. DENIES NO FURTHER NEEDS AT THIS TIME. CONTINUE PLAN OF CARE.
[2019-04-28 00:52] VITALS: BP 100/55
[2019-04-28 04:28] VITALS: BP 104/52
--- NOTE | 2019-04-28 08:05 | NUR ---
PT IS RESTING,WITHOUT DISTRESS.CALL LIGHT IN REACH
[2019-04-28 08:53] VITALS: BP 109/55
--- NOTE | 2019-04-28 09:58 | NUR ---
PT LYING IN BED SPOUSE AT BEDSIDE CONCERNED PT IS NOT MOVING BEFORE BEING ADMITTED AND WOULD LIKE FOR PT TO WORK WITH PT PRIOR TO SENDING PT HOME, ADVISED SPOUSE I DID NOT BELIEVE PT WILL BE RELEASED SOON AND THAT I WILL HAVE CM COME TALK TO HER ABOUT REHAB BEFORE DC. PT SPOUSE FELT MORE COMFORTABLE WITH THIS. NO OTHER NEEDS VOICED, CONTINUE WITH PLAN OF CARE
--- NOTE | 2019-04-28 12:54 | NUR ---
PT SPOUSE AT BEDSIDE STATED THAT PT WAS UP AND IN CHAIR YESTERDAY FOR AT LEAST 3 HOURS ADVISED HER I WILL GET WITH PT AND SEE IF WE CAN GET PT BACK UP. PT SPOUSE STATED PT WAS PLACED BACK IN BED BY MALE CHIEF PROJECTIONIST WHO IS NOT HERE TODAY BUT IF PT IS UP WE WILL GET HIM BACK IN BED SAFELY. NO OTHER NEEDS VOICED, CONTINUE WITH PLAN OF CARE
[2019-04-28 12:55] VITALS: BP 95/44
--- NOTE | 2019-04-28 16:37 | NUR ---
PT LYING IN BED ON RIGHT SIDE, ASSSITED SSN/SSBN ASSISTANT NAVIGATOR WITH PT PERSONAL CARE AND APPLIED CREAM TO PT GROIN AND BACKSIDE AREA, PT DID NOT COMPLAIN OF MUCH PAIN WILE CLEANING PT UP THIS AFTERNOON, SPOKE TO ROBERTO CARLOS WITH PT AND STATED THAT WE WILL GET PT UP TO CHAIR TOMORROW. NO SIGNS OF DISTRESS, CONTINUE WITH PLAN OF CARE
[2019-04-28 16:49] VITALS: BP 104/49
--- NOTE | 2019-04-28 20:00 | NUR ---
A/O WITH NO SIGNS OF DISTRESS. IV TO THE RT HAND WITH NO REDNESS NOTED. MARTIN IN PLACE AND NC @1.5L. POSITIONED PT TO THE RT SIDE. DENIES PAIN OR OTHER NEEDS AT THIS TIME. CONTINUE PLAN OF CARE.
[2019-04-28 21:10] VITALS: BP 91/53
--- NOTE | 2019-04-29 00:46 | NUR ---
CRYING OUT SAYING HIS BACK HURTS. CALL MD FOR PAIN MEDS. WILL MONITOR.
[2019-04-29 01:58] VITALS: BP 128/54
[2019-04-29 06:10] LABS: BASOPHILS 0.1 % (0-2); EOSINOPHILS 2.7 % (0-7); HEMATOCRIT 33.2 % (42.0-54.0); HEMOGLOBIN 10.8 g/dL (13.5-17.5); IMMATURE GRANULOCYTES 0.7 % (0-5); LYMPHOCYTES 13.6 % (15-50); MCH 32.4 pg (26.0-34.0); MCHC 32.5 g/dL (31.0-37.0); MCV 99.7 fL (80.0-100.0); MONOCYTES 6.3 % (2-11); NEUTROPHILS 76.6 % (40-80); RBC 3.33 10x6/uL (4.20-6.10); RDW 15.1 % (11.5-14.5)
[2019-04-29 06:15] LABS: PLATELET COUNT 271 10x3/uL (130-400); WBC 13.6 10x3/uL (4.8-10.8)
[2019-04-29 06:24] LABS: ANION GAP 8.7 mmol/L (8-16); CALCIUM 8.3 mg/dL (8.5-10.1); CARBON DIOXIDE 29.2 mmol/L (21.0-32.0); POTASSIUM - SERUM 3.9 mmol/L (3.5-5.1)
[2019-04-29 06:27] LABS: CREATININE - SERUM 1.3 mg/dL (0.6-1.3)
[2019-04-29 08:09] VITALS: BP 96/50
--- NOTE | 2019-04-29 10:18 | NUR ---
ASSISTED PT UP TO CHAIR, PT WBC IS 13.6 TODAY SPOUSE CONCERNED PT MAY BE GOING BACKWARDS, ADVISED HER I WILL GIVE PT I/S AND HAVE PT SIT UP THROUGH LUNCH TODAY. PT C/O BACK PAIN, PLACED 2 PILLOWS BEHIND PT BACK WELL ADMINISTERED TYLENOL. CONTINUE WITH PLAN OF CARE
--- NOTE | 2019-04-29 15:22 | NUR ---
I have reviewed this patient and I concur with the Shift Assessment completed by the Licensed Practical Nurse today this shift.
--- NOTE | 2019-04-29 15:35 | NUR ---
PT LYING IN BED RESTING WELL, ASSISTED OIL PIPELINE DISPATCHER WITH PERSONAL CARE FOR PT AND APPLIED OINTMENT TO AREAS ON PT GROIN AND BACKSIDE THAT HAS BEEN RED. NO NEEDS VOICED CONTINUE WITH PLAN OF CARE
[2019-04-29 15:49] VITALS: BP 102/52
--- NOTE | 2019-04-29 19:30 | NUR ---
LYING IN BED WITH EYES CLOSED. RESP EVEN AND UNLABORED. O2 AT 1.5 LITERS VIA NC. IV TO RIGHT HAND IS SL AT THIS TIME. CATHETER IS DRAINING YELLOW URINE TO CDS VIA GRAVITY. CALL BUTTON IN REACH. FALL PRECAUTIONS IN PLACE. WILL NOTE ANY CHANGE.
[2019-04-30] VITALS: BP 132/56
--- NOTE | 2019-04-30 02:52 | NUR ---
I have reviewed this patient and I concur with the Shift Assessment completed by the Licensed Practical Nurse today this shift.
[2019-04-30 07:47] LABS: BASOPHILS 0.2 % (0-2); EOSINOPHILS 2.2 % (0-7); HEMATOCRIT 32.9 % (42.0-54.0); HEMOGLOBIN 10.9 g/dL (13.5-17.5); IMMATURE GRANULOCYTES 0.4 % (0-5); MCH 33.2 pg (26.0-34.0); MCHC 33.1 g/dL (31.0-37.0); MCV 100.3 fL (80.0-100.0); MEAN PLATELET VOLUME 9.6 fL (7.4-10.4); NEUTROPHILS 79.2 % (40-80); RBC 3.28 10x6/uL (4.20-6.10); RDW 14.9 % (11.5-14.5); WBC 13.3 10x3/uL (4.8-10.8)
[2019-04-30 07:49] LABS: PLATELET COUNT 330 10x3/uL (130-400)
[2019-04-30 08:16] LABS: ANION GAP 8.1 mmol/L (8-16); CALCIUM 8.6 mg/dL (8.5-10.1); CARBON DIOXIDE 29.8 mmol/L (21.0-32.0); CREATININE - SERUM 1.1 mg/dL (0.6-1.3); POTASSIUM - SERUM 3.9 mmol/L (3.5-5.1)
[2019-04-30 08:43] VITALS: BP 112/59
--- NOTE | 2019-04-30 10:30 | NUR ---
PATIENT CONFUSED AT TIMES, CAN FOLLOW DIRECTIONS. NO C/O PAIN. NO S/S OF ACUTE DISTRESS NOTED. DENIES ANY NEEDS AT THIS TIME. CALL LIGHT IN REACH. FALL PRECAUTIONS IN PLACE. WILL CONTINUE TO MONITOR.
--- NOTE | 2019-04-30 11:18 | NUR ---
I have reviewed this patient and I concur with the Shift Assessment completed by the Licensed Practical Nurse today this shift.
[2019-04-30 12:26] VITALS: BP 124/62
[2019-04-30 16:40] VITALS: BP 121/66
--- NOTE | 2019-04-30 18:55 | NUR ---
CONFUSED, ON SET OF DEMENTIA. DENIES ANY NEEDS AT THIS TIME. FAMILY AT BEDSIDE. CALL LIGHT IN REACH. ALVAREZ ALARM ON. WILL CONTINUE TO MONITOR.
--- NOTE | 2019-04-30 19:00 | NUR ---
BEDSIDE REPORT RECEIVED AND CARE OF PT ASSUMED. PT LYING IN SUPINE POSITION WITH EYES CLOSED. PT DIRTY WITH INCONTINENT STOOL...HARVEST WORKER FIELD CROP CALLED TO ASSIST WITH BED CHANGED. IV TO RIGHT HAND SALINE LOCKED.
--- NOTE | 2019-04-30 19:30 | NUR ---
MARTIN CATHETER REMOVED PER ORDER.
[2019-04-30 20:00] VITALS: BP 100/53
--- NOTE | 2019-04-30 20:50 | NUR ---
HS MEDS GIVEN. WILL CONTINUE TO MONITOR FOR NEEDS.
--- NOTE | 2019-04-30 22:00 | NUR ---
PT HAD LARGE INCONTINENT VOID. BEDPADS CHANGED.
[2019-05-01 04:00] VITALS: BP 96/58
[2019-05-01 06:29] LABS: BASOPHILS 0.3 % (0-2); HEMATOCRIT 33.3 % (42.0-54.0); HEMOGLOBIN 10.8 g/dL (13.5-17.5); IMMATURE GRANULOCYTES 0.4 % (0-5); LYMPHOCYTES 17.7 % (15-50); MCH 32.8 pg (26.0-34.0); MCHC 32.4 g/dL (31.0-37.0); MCV 101.2 fL (80.0-100.0); MEAN PLATELET VOLUME 9.8 fL (7.4-10.4); MONOCYTES 6.3 % (2-11); NEUTROPHILS 73.3 % (40-80); PLATELET COUNT 338 10x3/uL (130-400); RBC 3.29 10x6/uL (4.20-6.10); WBC 11.4 10x3/uL (4.8-10.8)
[2019-05-01 06:54] LABS: ANION GAP 8.6 mmol/L (8-16); CALCIUM 8.7 mg/dL (8.5-10.1); CARBON DIOXIDE 29.6 mmol/L (21.0-32.0); CREATININE - SERUM 1.1 mg/dL (0.6-1.3); POTASSIUM - SERUM 4.2 mmol/L (3.5-5.1)
--- NOTE | 2019-05-01 08:45 | NUR ---
PATIENT IN BED WITH IV INTACT. NO COMPLAINTS AT THIS TIME. EXCORIATION TO BUTTOCKS, THIGHS AND PAULA AREA NOTED. PATIENT ON FALL PRECAUTIONS. FAMILY AT BEDSIDE. CALL LIGHT WITHIN REACH.
[2019-05-01 09:03] VITALS: BP 110/56
--- NOTE | 2019-05-01 09:57 | NUR ---
Rehab Prescreening Consult recieved and the chart has been reviewed. This patient has a qualifying rehab diagnosis, but has a history of dementia and has 24 hr care. Rehab will visit with him or his to see if he will be able to follow commands and participate in the required 3 hrs of therapy daily 5 days a week. Discussed with the CM Wanda Barker RN. Debbie Espinoza RN Clinical Liaison, Rehab
--- NOTE | 2019-05-01 11:30 | NUR ---
PATIENT SITTING UP IN CHAIR WITH NO COMPLAINTS OR SIGNS OF DISTRESS AT THIS TIME. CALL LIGHT WITHIN REACH.
[2019-05-01 12:10] VITALS: BP 96/44
--- NOTE | 2019-05-01 13:50 | NUR ---
PATIENT SITTING UP IN CHAIR AT THIS TIME. IV INTACT. CALL LIGHT WITHIN REACH.
--- NOTE | 2019-05-01 14:24 | NUR ---
NUTRITION F/U CHART REVIEWED. PT REMAINS IN ISOLATION. NURSING REPORTS PT WITH GOOD PO INTAKE AHA DIET. WILL CONTINUE TO PROVIDE DIET AND MONITOR PO INTAKE. RD FOLLOWING
--- NOTE | 2019-05-01 15:54 | MORECARE ---
CASE MANAGEMENT DISCHARGE SUMMARY PATIENT: EDDIE FOY JR UNIT: [id number] ADM DATE: 04/21/19 AGE: 83 : 36 SEX: M ROOM/BED: D.2217 AUTHOR: CHENGDOC PHYSICIAN: REFERRING PHYSICIAN: ZOË PARIKH MD DATE OF SERVICE: 05/01/19 Discharge Plan Patient Name: EDDIE FOY Facility: [facility]:[place] : 1935 Planned Disposition: Anticipated Discharge Date: Discharge Date: Expected LOS: Initial Reviewer: [email or web address] Initial Review Date: 04/22/2019 Generated: 05/01/19 4:53 pm Comments DCP- Discharge Planning Updated by [email or web address]: Madyson Grimaldo on 05/01/19 2:[address] CM met with patient and spouse at bedside. COLLEEN signed for [facility] Inpatient Rehab. D/C IMM signed via Joe Foy patient spouse. Denies any discharge needs at this time. CM will continue to follow and assist as needed with discharge planning / needs DCP- Discharge Planning Updated by [id number]: Madyson Grimaldo on 04/22/19 2:[address] Patient Name: EDDIE FOY Admission Status: ER Accout number: [id number] Admission Date: 04-21-2019 : 1935 Admission Diagnosis: Attending: ZOË PARIKH Current LOS: 1 Anticipated DC Date: Planned Disposition: Primary Insurance: MEDICARE A & B Discharge Planning Comments: CM met with patient at bedside after explaining CM role and obtaining verbal consent. Patient is confused and unable to answer questions appropriately. CM called and spoke with patient's Joe ([phone]) Patient lives at a detention home where he get 24 hr care. (lived there for past 2 yrs.) and plans to return there upon discharge. Patient feels this would be a safe discharge. CM discussed availability / needs of home health and medical equipment. Patient denies any discharge needs at this time. Patient states he will have his family drive him home upon discharge. CM will continue to follow and assist as needed with discharge planning / needs. Small Parts Shaper Operator: Madyson Grimaldo DCPIA - Discharge Planning Initial Assessment Updated by [email or web address]: Madyson Grimaldo on 04/22/19 3:32 pm * Is the patient Alert and Oriented? No * How many steps to enter\exit or inside your home? * PCP KATI * Pharmacy [facility] * Preadmission Environment [facility] * Facility Name [facility] * ADLs Partial Dependent * Partial ADLs (Assistance needed) Ambulation Bathing Dressing Eating Medication Management Toileting Transfers * Equipment Walker * List name and contact numbers for known caregivers / representatives who currently or will assist patient after discharge: JOE FOY - SPOUSE - [phone] EDDIE FOY III - SON- [phone] * Verbal permission to speak to the caregivers and representatives has been obtained from the patient. Yes * Community resources currently utilized None * Additional services required to return to the preadmission environment? No * Can the patient safely return to the preadmission environment? Yes * Has this patient been hospitalized within the prior 30 days at any hospital? No Coverage Notice Reviewer: [id number] Grimaldo Notice Issued Date-Time: 05/01/2019 12:40 Notice Type: IM Discharge Notice Notice Delivered To: Family Member Relationship to Patient: Spouse Drafter Structural Name: JOE FOY Delivery Method: HAND - Hand Delivered Erika Days: Prior Verbal Notification: Recipient Understood Notice: Yes Recipient Signature: Yes Med Rec Note Co-signed by Attending: Coverage Notice Comment: Reviewer: [id number] Grimaldo Notice Issued Date-Time: 05/01/2019 12:40 Notice Type: Patient Choice Letter Notice Delivered To: Family Member Relationship to Patient: Spouse Drafter Structural Name: JOE FOY Delivery Method: HAND - Hand Delivered Erika Days: Prior Verbal Notification: Recipient Understood Notice: Yes Recipient Signature: Yes Med Rec Note Co-signed by Attending: Coverage Notice Comment: INPATIENT REHAB AT [facility] Last DP export: 04/22/19 2:43 Patient Name: EDDIE FOY Page [id number] at 1554 All edits/amendments must be made on the electronic document DICTATION DATE: 05/01/19 839 VIDEO GAME DESIGNER: GUERITA 05/01/19 563 RPT#: [id number] [place] DATE: STATUS: ADM IN [facility] [address] [facility] [place] [address] END OF REPORT
--- NOTE | 2019-05-01 16:00 | NUR ---
REPORT CALLED TO REHAB AT THIS TIME.
--- NOTE | 2019-05-01 16:30 | NUR ---
PATIENT TO REHAB.
== END 2019-05-01 17:22 | DRG 872 ==
LOC: D.ER 22:13 → D.ICU 23:10 → D.MS 04-23 12:13
PROVIDERS: Emergency Medicine; Family Medicine; ADMIT Legal Medicine; ATTEND Legal Medicine
DX: A41.9 Sepsis, unspecified organism (principal); N39.0 Urinary tract infection, site not specified; N17.9 Acute kidney failure, unspecified; G93.40 Encephalopathy, unspecified; F03.90 Unspecified dementia, unspecified severity, without behavioral disturbance, psychotic disturbance, mood disturbance, and anxiety; D64.9 Anemia, unspecified; E87.6 Hypokalemia; D72.819 Decreased white blood cell count, unspecified; B96.20 Unspecified Escherichia coli [E. coli] as the cause of diseases classified elsewhere; M25.50 Pain in unspecified joint; D72.829 Elevated white blood cell count, unspecified

== ENCOUNTER 2019-05-01 15:48 | Inpatient (IN) | payer MEDICARE, OTHER ==
[~2019-05-01] VITALS: Ht 172.7 cm; Wt 70.8 kg
--- NOTE | ~2019-05-01 | RHP ---
PATIENT: EDDIE HERNANDEZ JR MEDICAL RECORD: [id number] ACCOUNT: [id number] LOCATION:[facility]1116 : [birth year] ADMISSION DATE: 05/01/19 REHABILITATION HISTORY AND PHYSICAL EXAMINATION POST ADMISSION PHYSICIAN EXAMINATION ADMITTING DIAGNOSIS: Encephalopathy HISTORY OF PRESENT ILLNESS: The patient is an 83-year-old gentleman who presented to ED with fever and foul-smelling urine. He was admitted to the hospital and found to have a UTI with positive extended-spectrum beta-lactamase isolation, required sepsis and bacteremia. The patient had leukocytosis, encephalopathy, anemia, hypokalemia, acute kidney insufficiency. He has got a history of CVA, TIA, cardiac stents, coronary artery bypass grafting in the past and dementia. He also has a history of tobacco use. He has been on IV antibiotics during his acute stay for positive urine and blood cultures. He is currently receiving supplemental O2, being monitored closely for UTI, sepsis, acute pain. Monitoring his input and output. Monitoring his lab values closely. He is noted to have weakness, deconditioning, debility, impaired mobility, gait disturbance, high fall risk, and self-care deficits. These are all barriers to his discharge home safely. He lives at [facility] where there are 3 other residents with a coordinate measuring machine technician. He was independent with his mobility, using a rolling walker and a single point cane and required little assistance for his ADLs, currently set up for max assist for ADLs, mod to max assist for mobility. He and his would like him to return home to his assisted living with home health at his prior level of functioning or better. COMORBIDITIES: Include UTI, fever, sepsis, dementia, leukocytosis, joint pain, encephalopathy, bacteremia, anemia, hypokalemia, acute kidney injury, weakness, deconditioning, debility, impaired mobility. PAST MEDICAL HISTORY: Significant for CVA, TIA, pacemaker placement in the past, stents, coronary artery bypass grafting, prostate cancer, colon reconstruction in the past secondary to possible colon cancer, dementia, tobacco use. PAST SURGICAL HISTORY: Includes cataract surgery, bypass surgery, stents, pacemaker, radical resection of his colon and transurethral resection of his prostate. ALLERGIES: MORPHINE. CURRENT MEDICATIONS: Include Cymbalta, he is on 20 mg daily; he is on aspirin chewable 81 mg daily; Multaq 400 mg daily; he is on Namenda 10 mg b.i.d.; acetaminophen 500 mg every 4 hours and Calmoseptine p.r.n. HABITS: He does have a history of tobacco use. FAMILY HISTORY: Noncontributory. SOCIAL HISTORY: The patient hopes to return back to his assisted living. REVIEW OF SYSTEMS: GENERAL: He does complain of some weakness and fatigue. HEENT: Denies cold, cough, or congestion. HISTORY AND PHYSICAL [id number] EDDIE HERNANDEZ JR CARDIOVASCULAR: Denies chest pain. PHYSICAL EXAMINATION: VITAL SIGNS: Stable, afebrile. GENERAL: Elderly gentleman in no acute distress, alert upon exam. HEENT: Normocephalic and atraumatic. Mucosa moist. NECK: Supple. No lymphadenopathy. LUNGS: Clear at this time with no wheezing, rhonchi or rales. HEART: Regular rate and rhythm. He does have a holosystolic murmur. ABDOMEN: Soft, benign and nondistended. Positive bowel sounds times 4. EXTREMITIES: No clubbing, cyanosis or edema at this time. NEUROLOGIC: He is slow to mentate at times. He does have noted proximal muscle weakness. LABORATORY DATA: White count is 10,000, H&H 10.9 and 33.1 and platelet count was noted to be 356. His sodium is 137, potassium 4.1, BUN and creatinine of 25 and 1.0 and blood sugar is noted to be 86. ASSESSMENT: This is an 83-year-old gentleman admitted to the rehab with working diagnosis of encephalopathy secondary to sepsis and extended spectrum beta-lactamase positive UA. The patient has potential to make improvement. We instituted the following multidisciplinary therapies including, but not limited to physical, occupational, respiratory, speech, nutritional services, prosthetics and orthotics. Given his complex medical condition and risks for more complications, rehabilitation services cannot be provided at a low level of care such as half-way facility. PLAN: 1. Admit to [facility] for intensive inpatient therapy to include the following disciplines; A. Physical therapy to improve gait, all transfer skills and bed mobility to a modified independent level. B. Occupational therapy to a modified independent level. C. Case management to assist with discharge planning and placement options. D. Nutrition to assist with nutritional needs. E. Rehabilitation nursing to assist in monitoring the patient's underlying medical conditions and to assist with any type of bowel or bladder management. 2. The patient's current medication and medical care will be continued. 3. The patient will be placed on standard fall precautions. 4. The patient's estimated length of stay is approximately 7-10 days. 5. We will discuss this patient during care team staff meeting this week. We will continue on home medications where appropriate and I will see again in the a.m. on Saturday. TRANSINT:[id number] Voice Confirmation ID: [id number] DOCUMENT ID: [id number] 05/07/2019 Edited for thierno CALDERA. WERNER notes whether there has been none or any medical/functional change since admission: - No change since preadmission screen. WERNER attests patient continues to be appropriate for IRF: - Continues to be appropriate. HISTORY AND PHYSICAL [id number] EDDIE HERNANDEZ JR, JOHN SCOTT MD CC: [id number] DICTATION DATE: 05/02/19 1237 COAT EXAMINER: 05/02/19 1325 ADM IN [place] [id number] [place] [id number]
[~2019-05-01 15:48] MED LIST changes: +CYMBALTA20 MG PO
--- NOTE | 2019-05-01 19:10 | NUR ---
BEDSIDE REPORT COMPLETE. PT LYING IN BED ON LEFT SIDE EYES CLOSED RESTING. EASILY AROUSED WITH VERBAL STIMULI. DENIES ANY NEEDS OR PAIN. PT HESITANT IN ALLOWING NURSE TO ASSESS DID NOT WANT ME TO TOUCH OR MOVE HIM IN ANYWAY STATES I JUST WANT TO BE LEFT ALONE WILL ATTEMPT LATER TO ASSESS. VS STABLE. CL IN REACH. BED ALARM ON. WILL CONTINUE TO MONITOR
[2019-05-01 23:08] VITALS: BP 103/55; BMI 23.7
--- NOTE | 2019-05-01 23:34 | NUR ---
QUIET HOURS. PT LYING IN BED ON RIGHT SIDE EYES CLOSED RESTING QUIETLY. RR EVEN AND UNLABORED. CL IN REACH
--- NOTE | 2019-05-02 02:09 | NUR ---
PERFORMED INCONTINENCE CARE LARGE URINE INCONTINECY.
--- NOTE | 2019-05-02 03:36 | NUR ---
PT LYING IN BED EYES CLOSED RESTING. RR EVEN AND UNLABORED. CL IN REACH
[2019-05-02 05:55] LABS: BASOPHILS 0.4 % (0-2); HEMATOCRIT 33.1 % (42.0-54.0); HEMOGLOBIN 10.9 g/dL (13.5-17.5); IMMATURE GRANULOCYTES 0.5 % (0-5); LYMPHOCYTES 17.2 % (15-50); MCH 32.9 pg (26.0-34.0); MCHC 32.9 g/dL (31.0-37.0); MEAN PLATELET VOLUME 9.7 fL (7.4-10.4); MONOCYTES 8.4 % (2-11); NEUTROPHILS 70.5 % (40-80); PLATELET COUNT 356 10x3/uL (130-400); RBC 3.31 10x6/uL (4.20-6.10); RDW 14.9 % (11.5-14.5)
--- NOTE | 2019-05-02 06:10 | NUR ---
PT LYING IN BED EYES CLOSED RESTING. BRIEF CLEAN AND DRY. NO SIGNS OF ACUTE DISTRESS NOTED. CL IN REACH
[2019-05-02 06:19] LABS: CHLORIDE - SERUM 105 mmol/L (98-107); POTASSIUM - SERUM 4.1 mmol/L (3.5-5.1); SODIUM 137 mmol/L (136-145)
[2019-05-02 06:27] LABS: CALC OSMOLALITY 276 mosm/kg (275-300); CALCIUM 8.8 mg/dL (8.5-10.1); CARBON DIOXIDE 28.4 mmol/L (21.0-32.0); GLUCOSE 86 mg/dL (74-106); UREA NITROGEN 25 mg/dL (7-18); eGFR NON AFRICAN AMERICAN 76 mL/min (90-120)
[2019-05-02 08:00] VITALS: BP 95/45
--- NOTE | 2019-05-02 09:48 | NUR ---
HAS BEEN UP WORKING WITH THERAPY THIS MORNING. IS VERY CONFUSED BUT CAN FOLLOW SIMPLE COMMANDS. IS INCONT OF URINE. C/O NOT WANTING TO BE BE TOUCHED, MOVED, CLEANED UP, ROLLED OR CLOTHES CHANGED. NOW LAYING BACK IN BED. CALL LIGHT IN REACH. BED IN LOWEST POSITION. SIDE RAILS UP X2.
--- NOTE | 2019-05-02 12:59 | NUR ---
SITTING UP IN WC IN ROOM WORKING WITH O.T. EATING LUNCH. HE IS ABLE TO FEED HIMSELF BUT TIRES EASILY AND SLOWS DOWN ON EATING AFTER FEW BITES. REMAINS CONFUSED AND INCONT OF URINE.
[2019-05-02 13:34] VITALS: Ht 172.7 cm; Wt 70.8 kg
--- NOTE | 2019-05-02 15:30 | NUR ---
MAX ASST X2 TO GET FROM WC TO BED. TOTAL INCONT OF URINE. INSIDE OF LEGS AROUND PAULA AREA AND INNER THIGHTS IS EXCORIATED AND TENDER TO TOUCH. CALMOSEPTINE APPLIED. HE IS MOSTLY COOPERATIVE BUT YELLS OUT "STOP, DON'T, LEAVE ME ALONE !" WHEN MOVED.
--- NOTE | 2019-05-02 17:00 | NUR ---
LAYING QUIETLY IN BED. EYES CLOSED. CAME TO VISIT EARLIER. NO S/S DISTRESS. HE IS NOT TRYING TO GET OUT OF BED AT PRESENT. CALL LIGHT IN REACH
--- NOTE | 2019-05-02 18:22 | NUR ---
TRAY SET UP, PT ENCOURAGED TO FEED HIMSELF. HE DRANK ALL HIS ENSURE AND ATE A FEW BITES OF HIS MEAL BY HIMSELF. HE DECLINED ANY MORE FOOD.
[2019-05-02 19:25] VITALS: BP 86/49
--- NOTE | 2019-05-02 19:25 | NUR ---
BEDSIDE REPORT COMPLETE. PT LYING IN BED ON LEFT SIDE EYES CLOSED RESTING. EASILY AROUSED WITH VERBAL STIMULI. DENIES ANY NEEDS OR PAIN. BEDDING CLEAN AND DRY. NO SIGNS OF ACUTE DISTRESS NOTED. VS STABLE. SHIFT ASSESSMENT COMPLETE. CL IN REACH. FALL PRECAUTIONS IN PLACE. WILL CONTINUE TO MONITOR
--- NOTE | 2019-05-02 22:53 | NUR ---
PERFORMED INCONTINENCE CARE LARGE URINE INCONTINENCY. CHUX CHANGED AND CALMOSEPTINE APPLIED TO GROIN AND BUTTOCKS. REPOSITIONED TO LEFT SIDE. CL IN REACH
--- NOTE | 2019-05-02 23:48 | NUR ---
QUIET HOURS. PT LYING IN BED EYES CLOSED RESTING QUIETLY. RR EVEN AND UNLABORED. CL IN REACH
--- NOTE | 2019-05-03 01:58 | NUR ---
PT LYING IN BED EYES CLOSED RESTING. LINENS CLEAN AND DRY. RR EVEN AND UNLABORED. CL IN REACH
--- NOTE | 2019-05-03 05:04 | NUR ---
PT LYING IN BED EYES CLOSED RESTING COMFORTABLY. RR EVEN AND UNLABORED. CL IN REACH
--- NOTE | 2019-05-03 06:00 | NUR ---
PERFORMED INCONTINENT CARE LARGE URINE INCONTINENCY. APPLIED CALMOSEPTINE TO BUTTOCKS AND GROIN. PT POSITIONED ON LEFT SIDE. CL IN REACH
[2019-05-03 08:00] VITALS: BP 100/54
[2019-05-03 19:10] VITALS: BP 95/44
--- NOTE | 2019-05-03 19:10 | NUR ---
BEDSIDE REPORT COMPLETE. PT LYING IN BED ON RIGHT SIDE EYES CLOSED RESTING QUIETLY. NO SIGNS OF ACUTE DISTRESS NOTED. EASILY AROUSED WITH VERBAL STIMULI. DENIES ANY NEEDS OR PAIN. LINENS CLEAN AND DRY. VS STABLE. SHIFT ASSESSMENT COMPLETE. CL IN REACH. FALL PRECAUTIONS IN PLACE. WILL CONTINUE TO MONITOR
--- NOTE | 2019-05-03 23:54 | NUR ---
QUIET HOURS. PT LYING IN BED ON LEFT SIDE EYES CLOSED RESTING. INCONTINENCE CARE PERFORMED CHUX CHANGED. PT REPOSITIONED ON RIGHT SIDE. CL IN REACH
--- NOTE | 2019-05-04 03:30 | NUR ---
INCONTINENCY CARE PERFORMED AND BED LINENS CHANGED. POSITIONED PT ON RIGHT SIDE. NO SIGNS OF ACUTE DISTRESS NOTED. CL IN REACH
[2019-05-04 06:14] LABS: BASOPHILS 0.6 % (0-2); EOSINOPHILS 2.1 % (0-7); HEMATOCRIT 35.6 % (42.0-54.0); HEMOGLOBIN 11.4 g/dL (13.5-17.5); IMMATURE GRANULOCYTES 0.6 % (0-5); LYMPHOCYTES 16.3 % (15-50); MCH 32.5 pg (26.0-34.0); MCV 101.4 fL (80.0-100.0); MEAN PLATELET VOLUME 9.7 fL (7.4-10.4); MONOCYTES 8.4 % (2-11); RBC 3.51 10x6/uL (4.20-6.10); RDW 14.8 % (11.5-14.5)
--- NOTE | 2019-05-04 06:25 | NUR ---
PT LYING IN BED AWAKE AND ALERT. CHECKED FOR INCONTINENCY PT CLEAN AND DRY. RR EVEN AND UNLABORED. CL IN REACH
[2019-05-04 06:26] LABS: CALC OSMOLALITY 285 mosm/kg (275-300); CALCIUM 8.9 mg/dL (8.5-10.1); CARBON DIOXIDE 30.2 mmol/L (21.0-32.0); CHLORIDE - SERUM 104 mmol/L (98-107); GLUCOSE 83 mg/dL (74-106); POTASSIUM - SERUM 4.2 mmol/L (3.5-5.1); SODIUM 141 mmol/L (136-145); UREA NITROGEN 29 mg/dL (7-18); eGFR NON AFRICAN AMERICAN 76 mL/min (90-120)
[2019-05-04 06:39] LABS: PLATELET COUNT 429 10x3/uL (130-400)
--- NOTE | 2019-05-04 08:00 | NUR ---
PATIENT SITTING UP IN BED TO EAT BREAKFAST. FOOD CUT UP FOR PATIENT AND CARTONS OPENED. PATIENT IS ALERT/ORIENT. BED ALARM ON. CALL LIGHT WITHIN REACH. VOICES NO NEEDS AT THIS TIME. WILL CONTINUE WITH PLAN OF CARE
--- NOTE | 2019-05-04 10:10 | NUR ---
PATIENT IN REHAB ROOM. WORKING WITH PHYSICAL THERAPIST. PRN PAIN MEDICATION GIVEN PER PATIENT REQUEST
[2019-05-04 10:19] VITALS: BP 106/58
--- NOTE | 2019-05-04 14:32 | NUR ---
CANDE ADMITTED TO REHAB FROM ACUTE FLOOR. HIS PCP IS DR. BURLESON. DME AT HOME IS A RO[facility]ING WALK[facility]. PATIENT RESIDES IN A [facility] HOME WITH 24/7 CAREGIVERS. WILL CONTINUE TO FOLLOW WITH PATIENT.
--- NOTE | 2019-05-04 18:55 | NUR ---
BEDSIDE REPORT COMPLETE. PT LYING IN BED EYES CLOSED RESTING. NO SIGNS OF ACUTE DISTRESS NOTED. EASILY AROUSED WITH VERBAL STIMULI. DENIES ANY NEEDS OR PAIN. CL IN REACH. FALL PRECAUTIONS IN PLACE. WILL CONTINUE TO MONITOR
[2019-05-04 21:14] VITALS: BP 96/53
--- NOTE | 2019-05-05 00:44 | NUR ---
QUIET HOURS. PT LYING IN BED EYES CLOSED RESTING. RR EVEN AND UNLABORED. CL IN REACH
--- NOTE | 2019-05-05 03:46 | NUR ---
PT LYING IN BED ON RIGHT SIDE EYES CLOSED RESTING. RR EVEN AND UNLABORED. CL IN REACH
--- NOTE | 2019-05-05 05:47 | NUR ---
PT LYING IN BED ON RIGHT SIDE EYES CLOSED RESTING. NO SIGNS OF ACUTE DISTRESS NOTED. CL IN REACH
--- NOTE | 2019-05-05 07:32 | NUR ---
PT RESTING IN BED WITH EYES OPEN CALL LIGHT IN REACH NO PROBLEMS WILL MONITER
--- NOTE | 2019-05-05 13:16 | NUR ---
CARE TEAM MEETING: PATIENT IS NEW TO UNIT AND WILL BE RA AT NEXT MEETING. WILL CONTINUE TO FOLLOW WITH PATIENT
--- NOTE | 2019-05-05 14:17 | NUR ---
Nutrition Follow-up: Diet: Cardiac PO intake: ~42% average x last 9 meals; 50-75% x 3 meals yesterday No BM since admit x 4 days now. WT: 156# (05/02/19) Meds and labs reviewed. Continue current diet. Encourage PO intake. Will add Ensure with meal trays. Will continue to monitor PO intake. RD following.
--- NOTE | 2019-05-05 18:15 | NUR ---
PT REFUSED DINNER I GOT PT TO DRINK 2 DRINKS OF ENSURE REFUSED ANYTHING ELSE
--- NOTE | 2019-05-05 19:40 | NUR ---
PATIENT RECEIVED LAYING IN BED. ASSESSMENT & VITAL SIGNS DONE. BED LOW. CALL LIGHT WITHIN REACH. WILL CONTINUE TO MONITOR.
[2019-05-05 21:13] VITALS: BP 110/47
--- NOTE | 2019-05-06 00:21 | NUR ---
I have reviewed this patient and I concur with the Shift Assessment completed by the Licensed Practical Nurse today this shift.
--- NOTE | 2019-05-06 04:31 | NUR ---
PATIENT EYES CLOSED. RESPIRATIONS 18 & EVEN. BED LOW. ALARM ON. CALL LIGHT WITHIN REACH. WILL CONTINUE TO MONITOR.
[2019-05-06 08:00] VITALS: BP 97/58
--- NOTE | 2019-05-06 11:24 | NUR ---
PT RESTING IN BED WITH EYES OPEN CALL LIGHT IN REACH WILL MONITER
--- NOTE | 2019-05-06 19:30 | NUR ---
REPORT RECIEVED AND ROUNDING COMPLETE. JENNI LAYING IN BED IN LOW FOWLERS WITH EYES CLOSED BREATHING SHALLOW BUT EVEN. JULIAETN HAS NO PIV AND IS NOT WEARING O2 AT THIS TIME. PATIENT SHOWS NO S/SX OD DISTRESS. CALL LIGHT WITHIN REACH AND BED IN LOWEST LOCKED POSITION. NO NEEDS AT THIS TIME. WILL CONTINUE TO MONITOR.
[2019-05-06 21:19] VITALS: BP 82/42
--- NOTE | 2019-05-07 00:25 | NUR ---
I have reviewed this patient and I concur with the Shift Assessment completed by the Licensed Practical Nurse today this shift.
--- NOTE | 2019-05-07 05:53 | NUR ---
CHANGED PATIENT'S ENTIRE BED AND GAVE PATIENT A BED BATH HE SAT IN HIS WHEELCHAIR. PATIENT WAS A MODERATE ASSIST, WHEN GIVEN TIME HAS WAS ABLE TO MOST OF THE TRANSFER BY MYSELF. PATIENT IS RESTLY COMFORTABLY IN HIS BED. CALL LIGHT WITHIN REACH AND BED IN LOWEST LOCKED POSITION.
[2019-05-07 06:21] LABS: ANION GAP 14.4 mmol/L (8-16); CARBON DIOXIDE 28.3 mmol/L (21.0-32.0); CREATININE - SERUM 1.1 mg/dL (0.6-1.3); POTASSIUM - SERUM 4.7 mmol/L (3.5-5.1)
--- NOTE | 2019-05-07 07:31 | NUR ---
REPORT RECIEVED. PT RESTING QUIETLY WITH EYES CLOSED. RISE AND FALL OF CHEST NOTED. RR EVEN AND UNLABORED ON RA. BED LOCKED AND IN LOWEST POSITION, CALL LIGTH WITHIN REACH. WILL CTM
[2019-05-07 07:34] LABS: BASOPHILS 1.3 % (0-2); EOSINOPHILS 2.4 % (0-7); HEMOGLOBIN 11.6 g/dL (13.5-17.5); IMMATURE GRANULOCYTES 0.2 % (0-5); LYMPHOCYTES 38.2 % (15-50); MCH 32.8 pg (26.0-34.0); MCHC 32.2 g/dL (31.0-37.0); MCV 101.7 fL (80.0-100.0); MEAN PLATELET VOLUME 9.6 fL (7.4-10.4); MONOCYTES 7.5 % (2-11); NEUTROPHILS 50.4 % (40-80); PLATELET COUNT 442 10x3/uL (130-400); RBC 3.54 10x6/uL (4.20-6.10); RDW 14.6 % (11.5-14.5); WBC 6.2 10x3/uL (4.8-10.8)
[2019-05-07 08:00] VITALS: BP 98/50
--- NOTE | 2019-05-07 14:51 | NUR ---
Nutrition Follow-up: Diet: Cardiac + Ensure with meals PO intake: 100% x last 3 meals recorded. states that he is not eating very much. She states that meats a difficult for him to chew and that he prefers soft cooked vegetables. States that he is drinking 3 bottles of Ensure per day and that he may drink 4 if they are sent. No BM recorded since admit x 6 days now. WT: 156# (05/02/19) Meds and labs reviewed. Reddened are to buttocks per nursing skin assessment. Continue current diet. Will add diet preferences. Encouraged PO intake. Will add an additional Ensure during the day. RD following.
--- NOTE | 2019-05-07 17:25 | NUR ---
SITTING UP IN BED EATING A LITTLE SUPPER, MOSTLY DRINKING ENSURE AND EATING PEACHES. HAD VISITORS THAT TRIED TO TALK TO PT BUT HE SPOKE VERY LITTLE AND WOULD ANSWER SOME CLOSED ENDED QUESTIONS. HE HAD VERY LARGE INCONT STOOL IN BED. INCONT OF URINE WELL. CALL LIGHT IN REACH.
--- NOTE | 2019-05-07 19:53 | NUR ---
PATIENT RECEIVED LAYING IN BED. ASSESSMENT & VITAL SIGNS DONE. NO C/O PAIN OR DISTRESS. BED LOW. ALARM HAND STRIPPER LIGTH WITHIN REACH. WILL CONTINE TO MONITOR.
[2019-05-07 20:24] VITALS: BP 108/46
--- NOTE | 2019-05-08 00:07 | NUR ---
I have reviewed this patient and I concur with the Shift Assessment completed by the Licensed Practical Nurse today this shift.
--- NOTE | 2019-05-08 04:16 | NUR ---
PATIENT EYES CLOSED. RESPIRATIONS 18 & EVEN. BED LOW. ALARM ON. CALL LIGHT WITHIN REACH. WILL CONTINUE TO MONITOR.
[2019-05-08 07:21] VITALS: BP 104/52
--- NOTE | 2019-05-08 16:09 | NUR ---
SPOKE WITH PATIENT SPOUSE AND SHE WOULD LIKE FOR PATIENT TO DISCHARGE HOME ON 05/12/19 WITH HOME HEALTH. WILL CONTINUE TO FOLLOW WITH PATIENT.
--- NOTE | 2019-05-08 17:01 | NUR ---
PT RESTING IN BED WITH EYES OPEN CALL LIGHT IN REACH WILL MONITER
--- NOTE | 2019-05-08 17:03 | NUR ---
PT RESTING IN BED WITH EYES OPEN CALL LIGHT IN REACH NO PROBLEMS WILL MONITER
--- NOTE | 2019-05-08 19:33 | NUR ---
GREETED PATIENT AND INTRODUCED MYSELF HIS NURSE. PATIENT IS RESTING QUIETLY AT THIS TIME. DENIES ANY NEEDS. RESPIRATIONS EVEN. NO S/S OF DISTRESS. CALL LIGHT IN REACH.
[2019-05-08 19:45] VITALS: BP 97/54
--- NOTE | 2019-05-09 01:16 | NUR ---
PT. CLEANED OF INCONTINENT URINE. PT. TRYING TO HIT NURSING STAFF WHILE CHANGING BEDDING. REDIRECTED PT. TO CALM DOWN AND QUIT BEING AGGRESSIVE. CALL LIGHT IN REACH.
--- NOTE | 2019-05-09 05:01 | NUR ---
PT. RESTING QUIETLY WITH EYES CLOSED. RESPIRATIONS EVEN. NO S/S OF DISTRESS. CALL LIGHT IN REACH.
--- NOTE | 2019-05-09 09:16 | NUR ---
PT INCONTINENCE, CHANGED BLANKET, CLEANED PAULA AREA. APPLIED CLARI CREAM FOR RED AREA.
--- NOTE | 2019-05-09 11:25 | NUR ---
PT WET IN BED, CLEANED PAULA AREA, AND APPLIED CLARI IN RED AREA.
[2019-05-09 11:35] VITALS: BP 126/62
--- NOTE | 2019-05-09 18:06 | NUR ---
PT'S SAID SHE CAN'T FIND RESIDENT'S BLUE HAT, SHE SAW IT LAST NIGHT 6PM WHEN SHE CAME TO ASSIST WITH PT'S DINNER. THE BLUE HAT HAS THE WRITTEN:"MARYLU"
[2019-05-09 20:00] VITALS: BP 106/60
--- NOTE | 2019-05-09 20:30 | NUR ---
PATIENT RECEIVED LYING IN BED. ASSESSMENT & VITAL SIGNS DONE. PATIENT DRY. CALMOSEPTINE ON SCROTUM & INNER THIGHS. BED LOW. ALARM ON. CALL LIGHT WITHIN REACH. WILL CONTINUE TO MONITOR.
--- NOTE | 2019-05-09 23:26 | NUR ---
I have reviewed this patient and I concur with the Shift Assessment completed by the Licensed Practical Nurse today this shift.
--- NOTE | 2019-05-10 02:02 | NUR ---
PATIENT EYES CLOSED. RESPIRATIONS 18 & EVEN. BED LOW. ALARM ON. CALL LIGHT WITHIN REACH. WILL CONTINUE TO MONITOR.
[2019-05-10 19:50] VITALS: BP 145/55
--- NOTE | 2019-05-10 20:00 | NUR ---
PATIENT RECEIVED ON CONTACT ISOLATION. ASSESSMENT & VITAL SIGNS DONE. NO C/O PAIN OR DISTRESS. BED LOW. ALARM ON. CALL LIGHT WITHIN REACH. WILL CONTINUE TO MONITOR.
--- NOTE | 2019-05-11 02:46 | NUR ---
I have reviewed this patient and I concur with the Shift Assessment completed by the Licensed Practical Nurse today this shift.
--- NOTE | 2019-05-11 03:38 | NUR ---
PATIENT EYES CLOSED. RESPIRATIONS 18 & EVEN. BED LOW. CALL LIGHT WITHIN REACH. WILL CONTINUE TO MONITOR.
[2019-05-11 06:28] LABS: BASOPHILS 0.3 % (0-2); EOSINOPHILS 1.8 % (0-7); HEMATOCRIT 37.7 % (42.0-54.0); HEMOGLOBIN 12.1 g/dL (13.5-17.5); IMMATURE GRANULOCYTES 0.3 % (0-5); LYMPHOCYTES 22.8 % (15-50); MCH 32.8 pg (26.0-34.0); MCHC 32.1 g/dL (31.0-37.0); MCV 102.2 fL (80.0-100.0); MEAN PLATELET VOLUME 9.7 fL (7.4-10.4); MONOCYTES 9.5 % (2-11); NEUTROPHILS 65.3 % (40-80); PLATELET COUNT 392 10x3/uL (130-400); RBC 3.69 10x6/uL (4.20-6.10); RDW 14.6 % (11.5-14.5); WBC 9.4 10x3/uL (4.8-10.8)
[2019-05-11 06:57] LABS: CALC OSMOLALITY 291 mosm/kg (275-300); CALCIUM 9.3 mg/dL (8.5-10.1); CARBON DIOXIDE 31.3 mmol/L (21.0-32.0); CHLORIDE - SERUM 105 mmol/L (98-107); GLUCOSE 86 mg/dL (74-106); POTASSIUM - SERUM 4.7 mmol/L (3.5-5.1); SODIUM 144 mmol/L (136-145); UREA NITROGEN 28 mg/dL (7-18); eGFR NON AFRICAN AMERICAN 76 mL/min (90-120)
[2019-05-11 07:59] VITALS: BP 105/71
--- NOTE | 2019-05-11 10:44 | NUR ---
RESTING QUIETLY IN BED. EYES CLOSED. WAKES EASILY TO VERBAL STEMULI. IS CONFUSED AND IMMEDIATELY STARTES YELLING AND CURSING AT ANYONE WHO MOVES HIM. HE IS CONFUSED AND BALLS HIS FIST UP BUT DOES NOT SWING AT NURSE, SO FAR. HE REMAINS ON ISOLATION.
--- NOTE | 2019-05-11 17:43 | NUR ---
EATING SOME SUPPER. SITS UP BED AND FEEDS HIMSELF SOME THINGS. STILL INCONT OF URINE. AREA BETWEEN LEGS IS LOOKING MUCH BETTER AND IS LESS RED.
[2019-05-11 19:00] VITALS: BP 101/57
--- NOTE | 2019-05-11 19:10 | NUR ---
PT LYING IN BED. RESTING QUIETLY. EYES CLOSED. NO DISTRESS NOTED. BED IN LOW SIDE RAILS X2. CL IN REACH. RESP EVEN AND UNLABORED. LUNGS CLEAR. BOWEL ACTIVE X4. WILL CONTINUE TO MONITOR.
--- NOTE | 2019-05-12 03:00 | NUR ---
CHANGED PT DUE TO INCONT OF URINE. CL IN REACH. DENIES NEEDS. TOLERATED WELL. WCTM
--- NOTE | 2019-05-12 03:55 | NUR ---
I have reviewed this patient and I concur with the Shift Assessment completed by the Licensed Practical Nurse today this shift.
--- NOTE | 2019-05-12 07:48 | NUR ---
REPORT RECIEVED. WILL CONTINUE WITH POC. PT CURRENTLY LYING ON RIGHT SIDE RESTING WITH EYES CLOSED AT THIS TIME. NO S/S OF DISTRESS NOTED. RR EVEN AND UNLABORED ON RA. NO PIV NOTED. WILL CTM.
[2019-05-12 08:48] VITALS: BP 115/66
--- NOTE | 2019-05-12 09:12 | NUR ---
AM VSS AND WNL. PT REFUSED TO ALLOW ME TO CHANGE HIM. PT DID EAT SEVERAL BITES OF EGG AND DRANK HALF OF HIS ENSURE. WILL CTM.
--- NOTE | 2019-05-12 09:27 | NUR ---
PATIENT DISCHARGING HOME TODAY WITH CAREGIVER. NO NEW DME NEEDED AT THIS TIME. DR. PARIKH 05/27/2019 @ 2:00. PATIENT CHOICE FORM SIGNED, PATIENT SPOUSE DECLINES COMPARE DATA HER PHYSICIAN HAS RECOMMENDED THE HOME HEALTH TO USE. COPY GIVEN TO SPOUSE. [facility] FORM SIGNED, COPY GIVEN TO SPOUSE AND FILED IN CHART. DISCHARGE INSTRUCTIONS FAXED TO PCP, HOME HEALTH AND REVIEWED WITH SPOUSE. [facility] WILL PROVIDE THERAPY AT HOME.
--- NOTE | 2019-05-12 10:00 | NUR ---
I have reviewed this patient and I concur with the Shift Assessment completed by the Licensed Practical Nurse today this shift.
--- NOTE | 2019-05-12 14:00 | NUR ---
PT DISCHARGED HOME VIA WHEELCHAIR WITH . SIGNED PROPER DISCHARGE INSTRUCTIONS AND REMOVED ALL VALUABLES FROM THE ROOM.
== END 2019-05-12 14:00 | disposition home or self-care (01) | DRG 70 ==
LOC: D.REHAB 15:48
PROVIDERS: ADMIT Emergency Medicine; ATTEND Emergency Medicine
DX: G93.40 Encephalopathy, unspecified (principal); A41.9 Sepsis, unspecified organism; N39.0 Urinary tract infection, site not specified; N17.9 Acute kidney failure, unspecified; R50.9 Fever, unspecified; F03.90 Unspecified dementia, unspecified severity, without behavioral disturbance, psychotic disturbance, mood disturbance, and anxiety; D72.829 Elevated white blood cell count, unspecified; D64.9 Anemia, unspecified; E87.6 Hypokalemia; R53.1 Weakness; R53.81 Other malaise; M25.50 Pain in unspecified joint

== ENCOUNTER 2019-07-15 15:51 | Inpatient (IN) | payer MEDICARE, OTHER ==
[~2019-07-15] VITALS: Ht 172.7 cm; Wt 63.5 kg
[2019-07-15] VITALS (13 sets, daily range): BP systolic 72–147; BP diastolic 32–82; BMI 21.3
[2019-07-15 16:19] LABS: BASOPHILS 0.1 % (0-2); EOSINOPHILS 0 % (0-7); HEMATOCRIT 29.8 % (42.0-54.0); HEMOGLOBIN 9.6 g/dL (13.5-17.5); IMMATURE GRANULOCYTES 1.1 % (0-5); LYMPHOCYTES 5.7 % (15-50); MCH 30.1 pg (26.0-34.0); MCHC 32.2 g/dL (31.0-37.0); MCV 93.4 fL (80.0-100.0); MEAN PLATELET VOLUME 10.3 fL (7.4-10.4); MONOCYTES 5.6 % (2-11); NEUTROPHILS 87.5 % (40-80); RBC 3.19 10x6/uL (4.20-6.10); RDW 16.9 % (11.5-14.5)
[2019-07-15 16:22] LABS: PLATELET COUNT 118 10x3/uL (130-400)
--- NOTE | 2019-07-15 16:52 | NUR ---
PT TO CT
[2019-07-15 17:05] LABS: BILIRUBIN NEGATIVE (NEGATIVE); GLUCOSE NEGATIVE (NEGATIVE); KETONE NEGATIVE (NEGATIVE); NITRITE NEGATIVE (NEGATIVE); UROBILINOGEN NORMAL (NORMAL)
[2019-07-15 17:07] LABS: BACTERIA MODERATE /hpf (NEGATIVE); WHITE CELLS - URINE 0-5 /hpf (NEGATIVE)
[2019-07-15 17:10] LABS: APTT 35.2 SECONDS (22.8-39.4); INR 1.14 (0.85-1.17); PROTIME 14.6 SECONDS (11.6-15.0)
[2019-07-15 17:23] LABS: CALC OSMOLALITY 287 mosm/kg (275-300); CALCIUM 8.2 mg/dL (8.5-10.1); CARBON DIOXIDE 25.7 mmol/L (21.0-32.0); CHLORIDE - SERUM 105 mmol/L (98-107); CREATININE - SERUM 1.4 mg/dL (0.6-1.3); GLUCOSE 113 mg/dL (74-106); POTASSIUM - SERUM 3.1 mmol/L (3.5-5.1); SODIUM 140 mmol/L (136-145); UREA NITROGEN 34 mg/dL (7-18); eGFR NON AFRICAN AMERICAN 51 mL/min (90-120)
[2019-07-15] MEDS ORDERED: FLUDROCORTISON0.1 MG PO (17:44)
[2019-07-15 17:45] LABS: ALKALINE PHOSPHATASE 56 U/L (30-120); BILIRUBIN - TOTAL 0.29 mg/dL (0.2-1.3); CKMB 0.7 U/L (0.0-3.6); CREATINE KINASE 50 UL (21-232); PRO BNP 16480 pg/mL (0-450); PROTEIN - SERUM 5.6 g/dL (6.4-8.2); THYROID STIMULATING HORMONE 0.96 uIU/mL (0.36-3.74)
[2019-07-15 18:00] LABS: ALBUMIN 1.8 g/dL (3.4-5.0); ALT (SGPT) 15 U/L (10-68); MAGNESIUM - SERUM 1.7 mg/dL (1.8-2.4)
[2019-07-15 18:06] LABS: TROPONIN-I 0.099 ng/mL (0.000-0.060)
--- NOTE | 2019-07-15 19:14 | NUR ---
REPORT GIVEN TO JULIAN CAMPOS
--- NOTE | 2019-07-15 19:15 | NUR ---
NS/POTTASIUM 125 ML/H STILL INFUSING AT REPORT LEVOPHED STILL INFUSING AT 8 MCG/MIN
--- NOTE | 2019-07-15 19:47 | NUR ---
ATTEMPTED TO CALL REPORT, HE WILL CALL ME BACK.
--- NOTE | 2019-07-15 20:20 | NUR ---
ROCEPHIN INFUSION COMPLETED AT 2000
--- NOTE | 2019-07-15 20:35 | NUR ---
PT ARRIVED TO ICU ACCOMPANIED BY NURSING STAFF AND SPOUSE. PT CONFUSED TO TIME AND PLACE, REORIENTED NEEDED. PIV IN RT AC AND LT FOREARM INFUSING, SEE IV FLOWSHEET. PT UNABLE TO PROVIDE HISTORY AT THIS TIME, UNABLE TO PROVIDE MED REQ. WILL DISCUSS WITH IN AM. PT RESTING IN BED AT THIS TIME, NO ACUTE DISTRESS NOTED. WILL CONTINUE TO MONITOR.
--- NOTE | 2019-07-15 21:00 | NUR ---
PT RESTING IN BED, NO ACUTE DISTRESS NOTED.
--- NOTE | 2019-07-15 23:00 | NUR ---
PT RESTING IN BED, NO ACUTE DISTRESS NOTED. WILL CONTINUE TO MONITOR.
[2019-07-16] VITALS (25 sets, daily range): BP systolic 90–122; BP diastolic 55–85; Ht 172.7 cm; Wt 63.5 kg
--- NOTE | 2019-07-16 01:00 | NUR ---
PT RESTING IN BED COMFORTABLY. WILL CONTINUE TO MONITOR.
--- NOTE | 2019-07-16 03:00 | NUR ---
PT RESTING IN BED, NO ACUTE DISTRESS NOTED. WILL CONTINUE TO MONITOR.
[2019-07-16 04:23] LABS: BASOPHILS 0.1 % (0-2); EOSINOPHILS 0 % (0-7); HEMATOCRIT 30.8 % (42.0-54.0); HEMOGLOBIN 9.9 g/dL (13.5-17.5); IMMATURE GRANULOCYTES 0.3 % (0-5); LYMPHOCYTES 5.4 % (15-50); MCH 29.8 pg (26.0-34.0); MCHC 32.1 g/dL (31.0-37.0); MCV 92.8 fL (80.0-100.0); MEAN PLATELET VOLUME 10.2 fL (7.4-10.4); MONOCYTES 3.2 % (2-11); PLATELET COUNT 111 10x3/uL (130-400); RBC 3.32 10x6/uL (4.20-6.10); RDW 16.8 % (11.5-14.5)
[2019-07-16 04:24] LABS: WBC 15.4 10x3/uL (4.8-10.8)
[2019-07-16 04:43] LABS: ANION GAP 11.7 mmol/L (8-16); CALCIUM 8.4 mg/dL (8.5-10.1); CREATININE - SERUM 1.2 mg/dL (0.6-1.3)
[2019-07-16 04:47] LABS: POTASSIUM - SERUM 4.7 mmol/L (3.5-5.1)
--- NOTE | 2019-07-16 05:00 | NUR ---
PT DISORIENTED TO PLACE AND SITUATION. WILL CONTINUE TO MONITOR.
--- NOTE | 2019-07-16 07:00 | NUR ---
PT REPORT RECEIVED FROM CATTLE BRANDER NURSE. NO ACUTE SIGNS OF DISTRESS NOTED. SHIFT ASSESSMENT COMPLETED AT THIS TIME. NO COMPLAINTS NOTED. WILL CONTINUE TO MONITOR
--- NOTE | 2019-07-16 08:49 | NUR ---
FAMILY AT BEDSIDE. UPDATE GIVEN. WILL CONTINUE TO MONITOR
--- NOTE | 2019-07-16 11:05 | NUR ---
PT RESTING IN BED. COVERED HEAD UP ON OWN. REASSESSMENT COMPLETED. WILL CONTINUE TO MONITOR
--- NOTE | 2019-07-16 14:13 | NUR ---
SPEECH THERAPY IN ROOM. SWALLOW EVAL COMPLETED. PT TOLERATED SOFT FOODS WELL. WILL CONTINUE TO MONITOR
--- NOTE | 2019-07-16 15:06 | NUR ---
PT RESTING IN BED. TURNED AND REPOSITIONED. NO COMPLAINTS NOTED AT THIS TIME.
--- NOTE | 2019-07-16 17:00 | NUR ---
JUAN TUTTLE PAGED REGARDING PT IV FLUIDS. ORDER RECEIVED TO CHANGE FLUID FROM 20 K NS TO NS.
--- NOTE | 2019-07-16 17:44 | NUR ---
PT IN ROOM ASSISTING PT WITH EATING DINNER TRAY. NO COMPLAINTS NOTED AT THIS TIME.
--- NOTE | 2019-07-16 18:44 | MORECARE ---
CASE MANAGEMENT DISCHARGE SUMMARY PATIENT: EDDIE HERNANDEZ JR UNIT: [id number] ADM DATE: 07/15/19 AGE: 84 : 36 SEX: M ROOM/BED: D.2305 AUTHOR: MAURO ANAND PHYSICIAN: REFERRING PHYSICIAN: ZOË PARIKH MD DATE OF SERVICE: 07/16/19 Discharge Plan Patient Name: DEDIE HERNANDEZ Facility: [facility]:[place] : 1935 Planned Disposition: Home with Hospice Anticipated Discharge Date: Discharge Date: Expected LOS: Initial Reviewer: [email or web address] Initial Review Date: 07/15/2019 Generated: 07/16/19 7:43 pm Patient Name: EDDIE HERNANDEZ Page [id number] at 1844 All edits/amendments must be made on the electronic document DICTATION DATE: 07/16/191842 SYSTEM SUPPORT ADMINISTRATOR: GUERITA 07/16/191842 RPT#: [id number] DC DATE: STATUS: ADM IN [facility] [address] [place] [address] END OF REPORT
--- NOTE | 2019-07-16 18:51 | MORECARE ---
CASE MANAGEMENT DISCHARGE SUMMARY PATIENT: EDDIE HERNANDEZ JR UNIT: [id number] ADM DATE: 07/15/19 AGE: 84 : 36 SEX: M ROOM/BED: D.2305 AUTHOR: MAURO ANAND PHYSICIAN: REFERRING PHYSICIAN: ZOË PARIKH MD DATE OF SERVICE: 07/16/19 Discharge Plan Patient Name: EDDIE HERNANDEZ Facility: [facility]:[place] : 1935 Planned Disposition: Home with Hospice Anticipated Discharge Date: Discharge Date: Expected LOS: Initial Reviewer: [email or web address] Initial Review Date: 07/15/2019 Generated: 07/16/19 7:50 pm DCPIA - Discharge Planning Initial Assessment Updated by [id number]: Madyson Grimaldo on 07/16/19 6:45 pm * Is the patient Alert and Oriented? No * PCP KATI * Pharmacy [facility] * Preadmission Environment Other * Other Environment [facility] * ADLs Total Dependent * List name and contact numbers for known caregivers / representatives who currently or will assist patient after discharge: JOE HERNANDEZ - - [phone] EDDIE HERNANDEZ III - SON - [phone] * Verbal permission to speak to the caregivers and representatives has been obtained from the patient. N/A * Community resources currently utilized Private Duty Care * Please name any agencies selected above. LIVES IN [facility] * Additional services required to return to the preadmission environment? No * Can the patient safely return to the preadmission environment? Yes * Has this patient been hospitalized within the prior 30 days at any hospital? No Last DP export: 07/16/19 5:44 p Patient Name: EDDIE HERNANDEZ Page [phone] at 1851 All edits/amendments must be made on the electronic document DICTATION DATE: 07/16/191849 MACHINE TOOL MECHANIC: GUERITA 07/16/191849 RPT#: [id number] DC DATE: STATUS: ADM IN [facility] [address] [place] [address] END OF REPORT
[2019-07-16 18:53] LABS: BASOPHILS 0.1 % (0-2); EOSINOPHILS 0 % (0-7); HEMATOCRIT 30.4 % (42.0-54.0); HEMOGLOBIN 9.6 g/dL (13.5-17.5); IMMATURE GRANULOCYTES 0.2 % (0-5); LYMPHOCYTES 6.7 % (15-50); MCH 29.5 pg (26.0-34.0); MCHC 31.6 g/dL (31.0-37.0); MCV 93.5 fL (80.0-100.0); MEAN PLATELET VOLUME 11.3 fL (7.4-10.4); MONOCYTES 2.7 % (2-11); NEUTROPHILS 90.3 % (40-80); PLATELET COUNT 103 10x3/uL (130-400); RBC 3.25 10x6/uL (4.20-6.10); RDW 16.9 % (11.5-14.5)
--- NOTE | 2019-07-16 18:58 | MORECARE ---
CASE MANAGEMENT DISCHARGE SUMMARY PATIENT: EDDIE HERNANDEZ JR UNIT: [id number] ADM DATE: 07/15/19 AGE: 84 : 36 SEX: M ROOM/BED: D.2305 AUTHOR: MAURO ANAND PHYSICIAN: REFERRING PHYSICIAN: ZOË PARIKH MD DATE OF SERVICE: 07/16/19 Discharge Plan Patient Name: EDDIE HERNANDEZ Facility: [facility]:[place] : 1935 Planned Disposition: Home with Hospice Anticipated Discharge Date: Discharge Date: Expected LOS: Initial Reviewer: [email or web address] Initial Review Date: 07/15/2019 Generated: 07/16/19 7:57 pm Comments DCP- Discharge Planning Updated by [email or web address]: Madyson Grimaldo on 07/16/19 5:[address] Patient Name: EDDIE HERNANDEZ Admission Status: ER Accout number: [id number] Admission Date: 07-15-2019 : 1935 Admission Diagnosis: Attending: ZOË PARIKH Current LOS: 1 Anticipated DC Date: Planned Disposition: Home with Hospice Primary Insurance: MEDICARE A & B Discharge Planning Comments: CM met with patient's to complete initial dc planning assessment. CM educated patient on the CM role and verbal consent given by patient to complete assessment. CM verified patient's address, phone number, and emergency contact phone numbers. Patient lives at a [facility] Home with private caregivers. At discharge patient plans to return home but patient's spouse Joe stated that she has spoken to Dr. Parikh and are considering [facility]. COLLEEN signed for [facility]. CM will continue to follow and will assist as needed with dc plans/needs. Customs Patrol Officer: Madyson Grimaldo DCPIA - Discharge Planning Initial Assessment Updated by [email or web address]: Madyson Grimaldo on 07/16/19 6:45 pm * Is the patient Alert and Oriented? No * PCP KATI * Pharmacy [facility] * Preadmission Environment Other * Other Environment [facility] CARE [facility]IV[facility] * ADLs Total Dependent * List name and contact numbers for known caregivers / representatives who currently or will assist patient after discharge: JOE HERNANDEZ - - [phone] EDDIE HERNANDEZ III - SON - [phone] * Verbal permission to speak to the caregivers and representatives has been obtained from the patient. N/A * Community resources currently utilized Private Duty Care * Please name any agencies selected above. LIVES IN [facility] WITH PRIVATE CARE * Additional services required to return to the preadmission environment? No * Can the patient safely return to the preadmission environment? Yes * Has this patient been hospitalized within the prior 30 days at any hospital? No Last DP export: 07/16/19 5:51 p Patient Name: EDDIE HERNANDEZ Page [phone] at 1858 All edits/amendments must be made on the electronic document DICTATION DATE: 07/16/191856 COORDINATE MEASURING MACHINE TECHNICIAN: GUERITA 07/16/191856 RPT#: [id number] DC DATE: STATUS: ADM IN [facility] [address] [place] [address] END OF REPORT
[2019-07-16 19:07] LABS: CALC OSMOLALITY 288 mosm/kg (275-300); CALCIUM 8.5 mg/dL (8.5-10.1); CARBON DIOXIDE 23.2 mmol/L (21.0-32.0); CHLORIDE - SERUM 109 mmol/L (98-107); GLUCOSE 142 mg/dL (74-106); POTASSIUM - SERUM 4.3 mmol/L (3.5-5.1); SODIUM 141 mmol/L (136-145); UREA NITROGEN 29 mg/dL (7-18); eGFR NON AFRICAN AMERICAN 76 mL/min (90-120)
[2019-07-17] VITALS (12 sets, daily range): BP systolic 113–140; BP diastolic 67–101
--- NOTE | 2019-07-17 05:58 | NUR ---
UPON ENTERING PATIENT ROOM PATIENT WAS FOUND CRAWLING ON FLOOR. PATIENT DENIES FALLING OR HAVING ANY PAIN. WILL CONTACT DR. PARIKH. NO INJURIES NOTED ON PAITENT SKIN. PATIENT MOVES ALL EXTREMITIES WELL. CALL LIGHT WITHIN REACH, BED IN LOW POSITION. BED ALARM WAS ON AND NOT ALARMING WHEN PATIENT WAS FOUND OUT OF BED.
--- NOTE | 2019-07-17 06:15 | NUR ---
DR. PARIKH PAGED AT THIS TIME
--- NOTE | 2019-07-17 06:16 | NUR ---
CHELI TUTTLE APN RETURNED CALL AND WAS NOTIFIED OF PATIENT BEING FOUND CRAWLING ON FLOOR. NO NEW ORDERS RECIEVED.
--- NOTE | 2019-07-17 09:25 | NUR ---
Nutrition follow-up: Diet: Clear liquids Labs reviweed Wt: 139# Recommend advancing diet to regular mechanical soft as tolerated RDN will order Following.
--- NOTE | 2019-07-17 09:44 | NUR ---
pt up to chair with pt. denies pain. confused. chair alarm placed.
--- NOTE | 2019-07-17 17:22 | NUR ---
SITTING UP IN CHAIR. EATING SUPPER VOICES NO CO AT TIME.
--- NOTE | 2019-07-17 17:45 | NUR ---
REPORT CALLED TO MARYANN JORDAN.
--- NOTE | 2019-07-17 18:17 | NUR ---
TRANSFER TO FLOOR ROOM NUMBER [id number].
--- NOTE | 2019-07-17 18:27 | NUR ---
PT TO ROOM FROM ICU VIA WHEELCHAIR. WANTED TO STAY SITTING UP IN CHAIR. CALL LIGHT IN HAND, BEDSIDE TABLE IN USE AND WATER GIVEN. MARTIN NOTED WITH CLEAR YELLOW URINE. IV INFUSING ON ARRIVAL. NO FAMILY WITH PT BUT STAFF STATES KNOWS OF TRANSFER.
--- NOTE | 2019-07-17 19:54 | NUR ---
PT LYING IN BED AWAKE AND ALERT. NO SIGNS OF DISTRESS NOTED. RESPIRATIONS EVEN AND UNLABORED. PT PRESENTS WITH LITTLE CONFUSION. PT ENCOUREGED TO CALL FOR HELP WHEN GETTING IN AND OUT OF BED. FALL PRECAUTION MEASURES ARE IN EFFECT. BED ALARM ON AND ACTIVE, FALL SOCKS, YELLOW GOWN, YELLOW ARM BAND. CALL LIGHT WITH IN REACH AND BED ISIN LOWEST POSITION. FREQUENT ROUNDING. WILL CONTINUE TO MONITOR.
[2019-07-18 00:30] VITALS: BP 120/70
--- NOTE | 2019-07-18 03:00 | NUR ---
I have reviewed this patient and I concur with the Shift Assessment completed by the Licensed Practical Nurse today this shift.
[2019-07-18 04:30] VITALS: BP 131/77
[2019-07-18 06:14] LABS: BASOPHILS 0.1 % (0-2); EOSINOPHILS 0.5 % (0-7); HEMATOCRIT 33.1 % (42.0-54.0); HEMOGLOBIN 10.8 g/dL (13.5-17.5); IMMATURE GRANULOCYTES 0.3 % (0-5); LYMPHOCYTES 15.8 % (15-50); MCH 30.1 pg (26.0-34.0); MCHC 32.6 g/dL (31.0-37.0); MCV 92.2 fL (80.0-100.0); MEAN PLATELET VOLUME 10.7 fL (7.4-10.4); MONOCYTES 7.4 % (2-11); NEUTROPHILS 75.9 % (40-80); PLATELET COUNT 116 10x3/uL (130-400); RBC 3.59 10x6/uL (4.20-6.10); WBC 12.5 10x3/uL (4.8-10.8)
[2019-07-18 06:29] LABS: CARBON DIOXIDE 23.8 mmol/L (21.0-32.0); CHLORIDE - SERUM 107 mmol/L (98-107); SODIUM 139 mmol/L (136-145); UREA NITROGEN 29 mg/dL (7-18); eGFR NON AFRICAN AMERICAN 76 mL/min (90-120)
[2019-07-18 06:30] LABS: CALC OSMOLALITY 282 mosm/kg (275-300); GLUCOSE 79 mg/dL (74-106); POTASSIUM - SERUM 3.4 mmol/L (3.5-5.1)
--- NOTE | 2019-07-18 07:26 | NUR ---
PT AWAKE AND CONFUSED. SITTING UP IN BED STARING OUT IN TO THE HALLWAY. NO COMPLAINTS OR CONCERNS AT THSI TIME. CL INR EACH,S RX2.
[2019-07-18 08:58] VITALS: BP 155/91
--- NOTE | 2019-07-18 10:18 | NUR ---
I have reviewed this patient and I concur with the Shift Assessment completed by the Licensed Practical Nurse today this shift.
--- NOTE | 2019-07-18 12:04 | NUR ---
PT AWAKE AND ORIENTED, REMOVED MARTIN THIS A.M PER NURSING PROTOCOL. PT TOLERATED WELL HAS SINCE URINATED. PT IS INCONT OF B/B. NO COMPLAINTS OR CONCERNS, WALKED WITH PHYSICAL THERAPY. CURRENTLY EATING LUNCH, AT BEDSIDE. CL INR EACH,S RX2. BED ALARM ON.
[2019-07-18 12:20] VITALS: BP 101/59
[2019-07-18 17:56] VITALS: BP 141/65
--- NOTE | 2019-07-18 19:31 | NUR ---
RECEIVED UP IN BED REQUESTING TO USE B/R. ASSISTED TO BEDSIDE COMMODE. ALERT AND CONFUSED. IV TO RT HAND WITH NS AT 100CC/HR. DSG CDI. ALSO HAS IV TO RT AC SL.. TELEMETRY IN PLACE. BED ALARM IN PLACE. WEARING YELLOW GOWN AND HAS YELLOW BRACLET ON. DENIES ANY PAIN OR NEEDS AT THIS TIME.
[2019-07-18 20:00] VITALS: BP 140/80
[2019-07-19] VITALS: BP 126/66
[2019-07-19 04:00] VITALS: BP 128/76
[2019-07-19 06:09] LABS: BASOPHILS 0.2 % (0-2); EOSINOPHILS 1.9 % (0-7); HEMOGLOBIN 10.8 g/dL (13.5-17.5); IMMATURE GRANULOCYTES 0.9 % (0-5); LYMPHOCYTES 15.1 % (15-50); MCHC 32.7 g/dL (31.0-37.0); MCV 91.7 fL (80.0-100.0); MEAN PLATELET VOLUME 10.9 fL (7.4-10.4); MONOCYTES 12.8 % (2-11); NEUTROPHILS 69.1 % (40-80); PLATELET COUNT 122 10x3/uL (130-400); RDW 16.6 % (11.5-14.5); WBC 12.9 10x3/uL (4.8-10.8)
[2019-07-19 06:29] LABS: CALC OSMOLALITY 279 mosm/kg (275-300); CALCIUM 8.1 mg/dL (8.5-10.1); CARBON DIOXIDE 23.6 mmol/L (21.0-32.0); CHLORIDE - SERUM 106 mmol/L (98-107); CREATININE - SERUM 0.9 mg/dL (0.6-1.3); GLUCOSE 81 mg/dL (74-106); POTASSIUM - SERUM 3.9 mmol/L (3.5-5.1); SODIUM 139 mmol/L (136-145); UREA NITROGEN 22 mg/dL (7-18); eGFR NON AFRICAN AMERICAN 85 mL/min (90-120)
[2019-07-19 10:00] VITALS: BP 119/69
[2019-07-19] MEDS ORDERED: OMNICEF300 MG PO (10:16)
[2019-07-19] MEDS ORDERED: LEVOFLOXACIN500 MG PO (10:16)
--- NOTE | 2019-07-19 11:30 | MORECARE ---
CASE MANAGEMENT DISCHARGE SUMMARY PATIENT: EDDIE HERNANDEZ JR UNIT: [id number] ADM DATE: 07/15/19 AGE: 84 : 36 SEX: M ROOM/BED: D.7899 AUTHOR: MAURO ANAND PHYSICIAN: REFERRING PHYSICIAN: ZOË PARIKH MD DATE OF SERVICE: 07/19/19 Discharge Plan Patient Name: EDDIE HERNANDEZ Facility: [facility]:[place] : 1935 Planned Disposition: Home with Hospice Anticipated Discharge Date: Discharge Date: Expected LOS: Initial Reviewer: [email or web address] Initial Review Date: 07/15/2019 Generated: 07/19/19 12:30 pm Comments DCP- Discharge Planning Updated by [email or web address]: Macie Kumari on 07/19/19 10:[address] Patient Name: EDDIE HERNANDEZ Encounter No: [id number] : 1935 Primary Insurance: MEDICARE A & B Anticipated DC Date: Planned Disposition: Home with Hospice External Planned Provider: : DCP follow-up note: Patient and family in agreement with discharge plan. PLANS TO DC TO HOME TODAY. DOES NOT WANT HOSPICE AT THIS TIME. FAMILY AT BEDSIDE. Case management will follow and assist as needed. Macie Kumari DCP- Discharge Planning Updated by [email or web address]: Madyson Grimaldo on 07/16/19 5:[address] Patient Name: EDDIE HERNANDEZ Admission Status: ER Accout number: [id number] Admission Date: 07-15-2019 : 1935 Admission Diagnosis: Attending: ZOË PARIKH Current LOS: 1 Anticipated DC Date: Planned Disposition: Home with Hospice Primary Insurance: MEDICARE A & B Discharge Planning Comments: CM met with patient's to complete initial dc planning assessment. CM educated patient on the CM role and verbal consent given by patient to complete assessment. CM verified patient's address, phone number, and emergency contact phone numbers. Patient lives at a [facility] with private caregivers. At discharge patient plans to return home but patient's spouse Joe stated that she has spoken to Dr. Parikh and are considering [facility]. COLLEEN signed for [facility]. CM will continue to follow and will assist as needed with dc plans/needs. [place] Man: Madyson Grimaldo DCPIA - Discharge Planning Initial Assessment Updated by [id number]: Madyson Grimaldo on 07/16/19 6:45 pm * Is the patient Alert and Oriented? No * PCP KATI * Pharmacy [facility] * Preadmission Environment Other * Other Environment [facility] * ADLs Total Dependent * List name and contact numbers for known caregivers / representatives who currently or will assist patient after discharge: JOE HERNANDEZ - - [phone] EDDIE HERNANDEZ III - SON - [phone] * Verbal permission to speak to the caregivers and representatives has been obtained from the patient. N/A * Community resources currently utilized Private Duty Care * Please name any agencies selected above. LIV[facility] IN [facility] * Additional services required to return to the preadmission environment? No * Can the patient safely return to the preadmission environment? Yes * Has this patient been hospitalized within the prior 30 days at any hospital? No Coverage Notice Reviewer: [email or web address] Leonila Kumari Notice Issued Date-Time: 07/19/2019 11:23 Notice Type: IM Discharge Notice Notice Delivered To: Patient Relationship to Patient: Novelty Candy Maker Name: Delivery Method: HAND - Hand Delivered Erika Days: Prior Verbal Notification: Recipient Understood Notice: Yes Recipient Signature: Yes Med Rec Note Co-signed by Attending: Coverage Notice Comment: Last DP export: 07/16/19 5:58 p Patient Name: EDDIE HERNANDEZ Page 15205 at 1130 All edits/amendments must be made on the electronic document DICTATION DATE: 07/19/19 1130 RCP: GUERITA 07/19/19 1130 RPT#: [id number] DC DATE: STATUS: ADM IN [facility] [address] [place] [address] END OF REPORT
--- NOTE | 2019-07-19 17:09 | MORECARE ---
CASE MANAGEMENT DISCHARGE SUMMARY PATIENT: EDDIE HERNANDEZ JR UNIT: [id number] ADM DATE: 07/15/19 AGE: 84 : 36 SEX: M ROOM/BED: D.5099 AUTHOR: MAURO ANAND PHYSICIAN: REFERRING PHYSICIAN: ZOË PARIKH MD DATE OF SERVICE: 07/19/19 Discharge Plan Patient Name: EDDIE HERNANDEZ Facility: [facility]:[place] : 1935 Planned Disposition: Home with Hospice Anticipated Discharge Date: Discharge Date: 07/19/2019 Expected LOS: Initial Reviewer: [id number] Initial Review Date: 07/15/2019 Generated: 07/19/19 6:09 pm Comments DCP- Discharge Planning Updated by [email or web address]: Macie Kumari on 07/19/19 10:[address] Patient Name: EDDIE HERNANDEZ Encounter No: [id number] : 1935 Primary Insurance: MEDICARE A & B Anticipated DC Date: Planned Disposition: Home with Hospice External Planned Provider: : DCP follow-up note: Patient and family in agreement with discharge plan. PLANS TO DC TO HOME TODAY. DOES NOT WANT HOSPICE AT THIS TIME. FAMILY AT BEDSIDE. Case management will follow and assist as needed. Macie Kumari DCP- Discharge Planning Updated by [email or web address]: Madyson Grimaldo on 07/16/19 5:[address] Patient Name: EDDIE HERNANDEZ Admission Status: ER Accout number: [id number] Admission Date: 07-15-2019 : 1935 Admission Diagnosis: Attending: ZOË PARIKH Current LOS: 1 Anticipated DC Date: Planned Disposition: Home with Hospice Primary Insurance: MEDICARE A & B Discharge Planning Comments: CM met with patient's to complete initial dc planning assessment. CM educated patient on the CM role and verbal consent given by patient to complete assessment. CM verified patient's address, phone number, and emergency contact phone numbers. Patient lives at a [facility] with private caregivers. At discharge patient plans to return home but patient's spouse Joe stated that she has spoken to Dr. Parikh and are considering [facility]. COLLEEN signed for [facility]. CM will continue to follow and will assist as needed with dc plans/needs. Weed Burner: Madyson Dillan DCPIA - Discharge Planning Initial Assessment Updated by [email or web address]: Madyson Grimaldo on 07/16/19 6:45 pm * Is the patient Alert and Oriented? No * PCP KATI * Pharmacy [facility] * Preadmission Environment Other * Other Environment [facility] * ADLs Total Dependent * List name and contact numbers for known caregivers / representatives who currently or will assist patient after discharge: JOE HERNANDEZ - - [phone] EDDIE HERNANDEZ III - SON - [phone] * Verbal permission to speak to the caregivers and representatives has been obtained from the patient. N/A * Community resources currently utilized Private [facility] * Please name any agencies selected above. LIVES IN [facility] * Additional services required to return to the preadmission environment? No * Can the patient safely return to the preadmission environment? Yes * Has this patient been hospitalized within the prior 30 days at any hospital? No Coverage Notice Reviewer: [id number] Leonila Kumari Notice Issued Date-Time: 07/19/2019 11:23 Notice Type: IM Discharge Notice Notice Delivered To: Patient Relationship to Patient: Wound Care Specialist Name: Delivery Method: HAND - Hand Delivered Erika Days: Prior Verbal Notification: Recipient Understood Notice: Yes Recipient Signature: Yes Med Rec Note Co-signed by Attending: Coverage Notice Comment: Last DP export: 07/19/19 10:30 a Patient Name: EDDIE HERNANDEZ Page [id number] at 1709 All edits/amendments must be made on the electronic document DICTATION DATE: 07/19/191708 GRINDING WHEEL OPERATOR: GUERITA 07/19/191708 RPT#: [id number] DC DATE:07/19/19 STATUS: DIS IN [facility] [address] [place] [address] END OF REPORT
--- NOTE | 2019-07-22 14:53 | MORECARE ---
CASE MANAGEMENT DISCHARGE SUMMARY PATIENT: EDDIE HERNANDEZ JR UNIT: [id number] ADM DATE: 07/15/19 AGE: 84 : 36 SEX: M ROOM/BED: D.2132 AUTHOR: MAURO ANAND PHYSICIAN: REFERRING PHYSICIAN: ZOË PARIKH MD DATE OF SERVICE: 07/22/19 Discharge Plan Patient Name: EDDIE HERNANDEZ Facility: [facility]:[place] : 1935 Planned Disposition: Home with Hospice Anticipated Discharge Date: Discharge Date: 07/19/2019 Expected LOS: Initial Reviewer: [id number] Initial Review Date: 07/15/2019 Generated: 07/22/19 3:52 pm Comments DCP- Discharge Planning Updated by [email or web address]: David Gutiérrez on 07/22/19 1:[address] Patient Name: EDDIE HERNANDEZ Encounter No: [id number] : 1935 Primary Insurance: MEDICARE A & B Anticipated DC Date: Planned Disposition: Home DCP follow-up note: CM RECEIVED CALL FROM JEO HERNANDEZ, ; JOE STATES HER WAS DISCHARGED HOME AND THEY THOUGHT THAT [facility] WAS GOING TO EVALUATE THEM AT HOME. PT STILL WANTS HOSPICE. CM ADVISED THAT THERE WAS NO HOSPICE ORDER ENTERED WHEN PT WAS IN THE HOSPITAL AND CM NOTED THAT PT DID NOT WANT HOSPICE. JOE STATES THAT PT DID AND STILL WANTS HOSPICE. MULUGETA EXPLAINED THAT CM CAN HAVE [facility] CALL HER AND CONTACT PRIMARY CARE DOCTOR FOR ANY NEEDED ORDERS. JOE ASKED CM TO DO SO. CM CALLED [facility], PROVIDED ABOVE INFORMATION WITH JOE'S CONTACT NUMBER. [facility] WILL CALL PT'S SPOUSE. CM LATER RECEIVED CALL FROM [facility], THEY HAVE SPOKEN TO PT'S SPOUSE AND WILL CONTACT PCP FOR HOSPICE EVALUATION ORDERS AT HOME. STAR Gallagher DCP- Discharge Planning Updated by [email or web address]: Macie Kumari on 07/19/19 10:[address] Patient Name: EDDIE HERNANDEZ Encounter No: [id number] : 1935 Primary Insurance: MEDICARE A & B Anticipated DC Date: Planned Disposition: Home with Hospice External Planned Provider: : DCP follow-up note: Patient and family in agreement with discharge plan. PLANS TO DC TO HOME TODAY. DOES NOT WANT HOSPICE AT THIS TIME. FAMILY AT BEDSIDE. Case management will follow and assist as needed. Macie Kumari DCP- Discharge Planning Updated by [id number]: Madyson Grimaldo on 07/16/19 5:[address] Patient Name: EDDIE HERNANDEZ Admission Status: ER Accout number: [id number] Admission Date: 07-15-2019 : 1935 Admission Diagnosis: Attending: ZOË PARIKH Current LOS: 1 Anticipated DC Date: Planned Disposition: Home with Hospice Primary Insurance: MEDICARE A & B Discharge Planning Comments: CM met with patient's to complete initial dc planning assessment. CM educated patient on the CM role and verbal consent given by patient to complete assessment. CM verified patient's address, phone number, and emergency contact phone numbers. [facility] with private caregivers. At discharge patient plans to return home but patient's spouse Joe stated that she has spoken to Dr. Parikh and are considering [facility]. COLLEEN signed for [facility]. CM will continue to follow and will assist as needed with dc plans/needs. Insurance Territory Manager: Madyson Grimaldo DCPIA - Discharge Planning Initial Assessment Updated by [email or web address]: Madyson Grimaldo on 07/16/19 6:45 pm * Is the patient Alert and Oriented? No * PCP KATI * Pharmacy [facility] * Preadmission Environment Other * Other Environment [facility] * ADLs Total Dependent * List name and contact numbers for known caregivers / representatives who currently or will assist patient after discharge: JOE HERNANDEZ - - [phone] EDDIE HERNANDEZ III - SON - [phone] * Verbal permission to speak to the caregivers and representatives has been obtained from the patient. N/A * Community resources currently utilized Private Duty Care * Please name any agencies selected above. LIVES IN [facility] * Additional services required to return to the preadmission environment? No * Can the patient safely return to the preadmission environment? Yes * Has this patient been hospitalized within the prior 30 days at any hospital? No Coverage Notice Reviewer: [id number] - Macie Kumari Notice Issued Date-Time: 07/19/2019 11:23 Notice Type: IM Discharge Notice Notice Delivered To: Patient Relationship to Patient: Capital Project Engineer Name: Delivery Method: HAND - Hand Delivered Erika Days: Prior Verbal Notification: Recipient Understood Notice: Yes Recipient Signature: Yes Med Rec Note Co-signed by Attending: Coverage Notice Comment: Last DP export: 07/19/19 4:09 p Patient Name: EDDIE HERNANDEZ Page [id number] at 1453 All edits/amendments must be made on the electronic document DICTATION DATE: 07/22/191451 WELDER GAS AUTOMATIC: GUERITA 07/22/191451 RPT#: [id number] DC DATE:07/19/19 STATUS: DIS IN [facility] [address] [place] [address] END OF REPORT
== END 2019-07-19 13:46 | disposition home health service (06) | DRG 871 ==
LOC: D.ER 15:51 → D.ICU 17:28 → D.M2 07-17 18:21
PROVIDERS: Emergency Medicine; ADMIT Legal Medicine; ATTEND Legal Medicine
DX: A41.9 Sepsis, unspecified organism (principal); J18.1 Lobar pneumonia, unspecified organism; R57.0 Cardiogenic shock; G92 Toxic encephalopathy; G72.81 Critical illness myopathy; D64.9 Anemia, unspecified; E87.6 Hypokalemia; F03.90 Unspecified dementia, unspecified severity, without behavioral disturbance, psychotic disturbance, mood disturbance, and anxiety; D72.829 Elevated white blood cell count, unspecified